=== PATIENT | female | born 1995 | race Caucasian/White ===

== ENCOUNTER 2025-01-28 15:42 | Emergency (ER) | payer OTHER, SELFPAY ==
[2025-01-28 15:42] VITALS: BP 119/79; PULSE 77; RESP 18; TEMP 36.8; O2SAT 99; BMI 24.5
--- NOTE | 2025-01-28 16:12 | RAD_ITS ---
PROCEDURE: ABDOMEN SINGLE VIEW (PORTABLE) 01/28/2025 REASON FOR EXAM: POSS FB INGESTION (TOOTH) TECHNIQUE: Procedure Code: RADABD_P Modality: DX Procedure: ABDOMEN SINGLE VIEW (PORTABLE) COMPARISON: None. FINDINGS: Bowel gas: Unremarkable bowel gas pattern. Calcifications: No abnormal calcifications. Bones: No acute bony abnormalities. Soft tissues: Intrauterine device is in place. RAD/Abdomen Single View (Portable) IMPRESSION: No acute abdominal findings. No abnormal radiopaque foreign bodies seen. Reading Location: [id number]
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
--- NOTE | 2025-01-28 16:15 | RAD_ITS ---
PROCEDURE: CHEST 1 VIEW (PORTABLE) 01/28/2025 REASON FOR EXAM: POSS FB INGESTION (TOOTH) TECHNIQUE: Frontal view of the chest. COMPARISON: None FINDINGS: Hardware: None Heart: Cardiac and mediastinal contours are stable. Lungs: The lungs are clear. Bones: The bones are unremarkable. No radiopaque foreign body is noted in the digestive tract or airway. RAD/Chest 1 View (Portable) IMPRESSION: No acute cardiopulmonary abnormality. Reading Location: [facility]
--- OUTSIDE RECORDS SUMMARY | 2025-01-28 16:19 | XMS RPT_ITS | CCD ---
Author Organization [facility] Care Team Providers Care Dispatcher Clerk Name Role Phone LISA, ORQUIDEA R Unavailable Unavailable LISA, ORQUIDEA R Unavailable Unavailable LISA, ORQUIDEA R Unavailable Unavailable LISA, ORQUIDEA R Unavailable Unavailable IRENE, ORESTES L Unavailable Unavailable IRENE, ORESTES L Unavailable Unavailable IRENE, ORESTES L Unavailable Unavailable Unavailable Primary Care Provider UnavailWilber Pedro MD Primary Care Provider Unavailable Primary Care Provider UnavailWilber Pedro MD Primary Care Provider WILBER WOODWARD Attending Unavailable FATEDEBBIEY D Primary Care Unavailable WILBER WOODWARD Attending Unavailable WILBER WOODWARD Primary Care Unavailable WILBER WOODWARD Primary Care Unavailable ROLY MCKEON Attending Unavailable WILBER WOODWARD Primary Care Unavailable CHRIS IBRAHIM Attending Unavailable ROLY MCKEON Attending Unavailable DEBBIE WOODWARDY [place] Primary Care Unavailable Tere Gutierrez MD Unavailable TERE GUTIERREZ Attending Unavailable Juliano Harris Primary Care Unavailable Dread Hoover Attending Unavailable Allergies Allergy Classification Reported Allergen(s) Allergy Type Date of Onset Reaction(s) Facility (7 sources) Acetaminophen / oxyCODONE; Translations: [OXYCODONE-ACETAM INOPHEN] Drug Allergy 0 [facility] (20 sources) Amoxicillin; Translations: [AMOXICILLIN] Drug Allergy 6 Hives, Anaphylaxis [facility] (20 sources) Doxycycline; Translations: [DOXYCYCLINE] Drug Allergy 9 Hives [facility] (20 sources) oxyCODONE; Translations: [OXYCODONE] Drug Allergy 1 Dizziness, Hives, Loss of consciousness, Nausea And Vomiting, Other [facility] (16 sources) Amitriptyline; Translations: [AMITRIPTYLINE] Drug Allergy 2 [employer] Work Phone: (16 sources) topiramate; Translations: [TOPIRAMATE] Drug Allergy 2 Pain [facility] (1 source) Amoxicillin Drug Allergy 5 [facility] (1 source) Doxycycline Drug Allergy 5 [facility] (1 source) topiramate Drug Allergy 5 [facility] Medications Current Medications Medication Drug Class(es) Dates Sig (Normalized) Sig (Original) atogepant (Qulipta) 60 mg tablet (10 sources) Start: 03-10-2023 End: 03-09-2024 take 1 tablet by mouth once daily atogepant (Qulipta) 60 mg tablet Take 60 mg by mouth 1 (one) time each day. 90 tablet 3 03/10/2023 03/09/2024 Active Start: 01-31-2022 End: 01-31-2023 take 1 tablet by mouth once daily atogepant (Qulipta) 60 mg tablet Indications: Chronic migraine without aura, with intractable migraine, so stated, with status migrainosus Take 60 mg by mouth 1 (one) time each day. 30 tablet 11 01/31/2022 01/31/2023 Active Start: 01-31-2022 End: 01-31-2023 take 1 tablet by mouth once daily atogepant (Qulipta) 60 mg tablet Take 60 mg by mouth 1 (one) time each day. 0 01/31/2022 01/31/2023 Active drospirenone, contraceptive, (Slynd) 4 mg (28) tablet (2 sources) Start: 08-09-2021 End: 09-04-2021 take 1 tablet by mouth once daily drospirenone, contraceptive, (Slynd) 4 mg (28) tablet Take 1 tablet by mouth 1 (one) time each day. 0 08/09/2021 09/04/2021 Discontinued (Other) Start: 08-09-2021 take 1 tablet by devon th once daily drospirenone, contraceptive, (Slynd) 4 mg (28) tablet Take 1 tablet by mouth 1 (one) time each day. 0 08/09/2021 Active levonorgestrel 0.139935 mg/hr intrauterine system (14 sources) Progestin, Progestin-containing Intrauterine Device Start: 09-04-2021 levonorgestreL (Kyleena) 17.5 mcg/24 hrs (5 yrs) 19.5 mg IUD 1 each by intrauterine route 1 (one) time for 1 dose. Lot [id number] Ex 06/2023 [facility] 36151-941-15 1 Intra Uterine Device 0 09/04/2021 Active Start: 09-04-2021 levonorgestreL 17.5 mcg/24 hrs (5 yrs) 19.5 mg intrauterine device IUD 19.5 mg by intrauterine route. 09/04/2021 Active miSOPROStol 0.2 mg oral tablet (1 source) Prostaglandin E1 Analog Start: 08-21-2021 End: 08-21-2021 miSOPROStoL (Cytotec) 200 mcg tablet Indications: Encounter for female control Take 1 tablet (200 mcg total) by mouth 1 (one) time if needed (IUD insertion) for up to 1 dose. Take 8-12 hrs prior to IUD insertion 1 tablet 0 08/21/2021 08/21/2021 Active Norethindrone (4 sources) Start: 09-23-2020 End: 09-04-2021 Katy 0.35 mg tablet Start: 09-23-2020 Katy 0.35 mg tablet Qulipta 60 mg tablet (1 source) Start: 08-03-2023 Qulipta 60 mg tablet rimegepant 75 mg disintegrating oral tablet (13 sources) Start: 01-14-2023 apply 1 tablet topically once daily rimegepant (Nurtec) 75 mg dispersible tablet Indications: Chronic migraine without aura, with intractable migraine, so stated, with status migrainosus Dissolve 1 tablet (75 mg total) on top of the tongue 1 (one) time each day if needed for migraine (for breakthrough). 8 tablet 11 01/14/2023 Active Start: 10-16-2021 End: 11-26-2022 apply 1 tablet topically once daily rimegepant (Nurtec) 75 mg dispersible tablet Indications: Chronic migraine without aura, with intractable migraine, so stated, with status migrainosus Dissolve 1 tablet (75 mg total) on top of the tongue 1 (one) time each day if needed for migraine (for breakthrough). 8 tablet 11 11/26/2022 Active rimegepant (Nurt ec ODT) 75 mg tablet,disintegrating Take by mouth. 0 Active rizatriptan 10 mg disintegrating oral tablet (9 sources) Serotonin-1b and Serotonin-1d Receptor Agonist Start: 09-20-2021 rizatriptan (MAXALT-RETAIL SERVICE TECHNICIAN) 10 mg disintegrating tablet DISSOLVE 1 TABLET ON THE TONGUE AT ONSET OF HEADACHE. MAY REPEAT 1 BY MOUTH EVERY 2 HOUR NEEDED. MAX 3 PER DAY 0 09/20/2021 Active Start: 02-26-2021 End: 12-03-2023 take 1 tablet by mouth once rizatriptan RETAIL SERVICE TECHNICIAN (Maxalt-ML T) 10 mg disintegrating tablet Indications: Chronic migraine without aura with status migrainosus, not intractable Take 1 tablet (10 mg total) by mouth 1 (one) time if needed for migraine (Tkane one tablet at the onset of migraine headache. May repeat one in 2 hours. Maximal dose: 2/day/week.). May repeat in 2 hours if unresolved. Do not exceed 30 mg in 24 hours. 9 tablet 6 02/26/2021 12/03/2023 Discontinued Start: 10-30-2020 End: 02-26-2021 rizatriptan RETAIL SERVICE TECHNICIAN (Maxalt-RETAIL SERVICE TECHNICIAN) 10 mg disintegrating tablet DISSOLVE 1 TABLET ON THE TONGUE AT ONSET OF HEADACHE. MAY REPEAT 1 BY MOUTH EVERY 2 HOUR NEEDED. MAX 3 PER DAY 0 10/30/2020 02/26/2021 Discontinued (Reorder) dl-alpha tocopheryl acetate 100 unt oral capsule (3 sources) End: 08-21-2021 vitamin E, dl,tocopheryl mehrdad t, (vitamin E, dl, acetate,) 45 mg (100 unit) capsule Take 100 Units by mouth. 0 08/21/2021 Discontinued Completed/Discontinued Medications Medication Drug Class(es) Dates Sig (Normalized) Sig (Original) atogepant (Qulipta) 30 mg tablet (2 sources) End: 12-03-2023 take 1 tablet by mouth once daily atogepant (Qulipta) 30 mg tablet Take 30 mg by mouth 1 (one) time each day. 0 12/03/2023 Discontinued take 1 tablet by mouth once tangela y atogepant (Qulipta) 30 mg tablet Take 30 mg by mouth 1 (one) time each day. 0 Active dextromethorphan hydrobromide 15 mg / guaiFENesin 400 mg / pseudoephedrine hydrochloride 60 mg oral tablet (1 source) alpha-Adrenergic Agonist, Uncompetitive Z-rpkhkn-T-aspartate Receptor Antagonist, Sigma-1 Agonist Start: 06-14-2023 End: 12-03-2023 Capmist DM 60-15-400 mg tablet escitalopram 5 mg oral tablet (7 sources) Serotonin Reuptake Inhibitor Start: 03-11-2023 End: 12-03-2023 escitalopram (Lexapro) 5 mg tablet Start: 11-26-2022 End: 02-24-2023 take 1 tablet by mouth once daily escitalopram (Lexapro) 5 mg tablet Indications: Anxiety Take 1 tablet (5 mg total) by mouth 1 (one) time each day. 30 each 2 11/26/2022 02/24/2023 Active gadoterate meglumine (Dotarem) 0.5 mmol/mL contrast injection 12 mL (1 source) Start: 01-23-2021 End: 01-23-2021 gadoterate meglumine (Dotarem) 0.5 mmol/mL contrast injection 12 mL gyhalgbe-ktda-KZ-calciu m-mins 27 mg iron-400 mcg tablet (13 sources) End: 12-03-2023 take 1 tablet by mouth once daily luxlinrg-hzpq-HF-calcium -mins 27 mg iron-400 mcg tablet Take 1 tablet by mouth 1 (one) time each day. 0 12/03/2023 Discontinued take 1 tablet by devon th once daily mkomdrzj-oyba-PP-calcium-mins 27 mg iron -400 mcg tablet Take 1 tablet by mouth 1 (one) time each day. Active take 1 tablet by devon th once daily ofnnuapy-ouek-TU-calcium-mins 27 mg iron -400 mcg tablet Take 1 tablet by mouth 1 (one) time each day. 0 Active 24 hr propranolol hydrochloride 120 mg extended release oral capsule (9 sources) beta-Adrenergic Brissa Start: 11-23-2020 End: 12-03-2023 take 1 capsule by mouth once daily propranolol LA (Inderal LA) 120 mg 24 hr capsule Indications: Chronic migraine without aura with status migrainosus, not intractable Take 1 capsule (120 mg total) by mouth 1 (one) time each day. 90 capsule 2 02/26/2021 12/03/2023 Discontinued SUMAtriptan 100 mg oral tablet (4 sources) Serotonin-1b and Serotonin-1d Receptor Agonist Start: 11-16-2019 End: 12-03-2023 SUMAtriptan (Imitrex) 100 mg tablet as needed 0 11/16/2019 12/03/2023 Discontinued Problems Active Problems Problem Classification Problem Date Documented Date Episodic/Chronic Anxiety disorders (3 sources) Anxiety; Translations: [Anxiety disorder, unspecified] Onset: 11-26-2022 11-26-2022 Chronic Contraceptive and procreative management (2 sources) Contraception status; Translations: [Encounter for initial prescription of contraceptives, unspecified] Onset: 12-03-2023 Episodic Esophageal disorders (17 sources) Gastroesophageal reflux disease; Translations: [Gastro-esophageal reflux disease without esophagitis] Onset: 09-17-2018 11-23-2020 Chronic Headache; including migraine (20 sources) New daily persistent headache; Translations: [New daily persistent headache (NDPH)] Onset: 05-07-2015 Resolved: 08-21-2021 11-23-2020 Chronic Immunizations and screening for infectious disease (2 sources) Patient encounter status; Translations: [Encounter for screening for infections with a predominantly sexual mode of transmission] Episodic Other female genital disorders (1 source) History of dysplasia of cervix; Translations: [Personal history of cervical dysplasia] Onset: 12-03-2023 12-03-2023 Episodic Other screening for suspected conditions (not mental disorders or infectious disease) (5 sources) Magnetic resonance imaging of brain abnormal; Translations: [Other abnormal findings on diagnostic imaging of central nervous system] Onset: 12-03-2023 Episodic Residual codes; unclassified (4 sources) Insomnia; Translations: [Other insomnia] Onset: 11-16-2019 08-16-2021 Chronic Residual codes; unclassified (1 source) High risk sexual behavior; Translations: [High risk heterosexual behavior] Episodic Residual codes; unclassified (1 source) History of loop electrosurgical excision procedure; Translations: [Other specified postprocedural states] Episodic Unclassified (1 source) Pain in right knee / M25.561(ICD-10) Onset: 12-01-2017 Unclassified (1 source) Encounter for other preprocedural examination / Z01.818(ICD-10) Onset: 04-13-2017 Unclassified (1 source) Sprain of unspecified ligament of right ankle, subsequent encounter / S93.401D(ICD-10) Onset: 04-13-2017 Unclassified (2 sources) Med Refill; Translations: [Med Refill] Onset: 03-10-2023 Past or Other Problems Problem Classification Problem Date Documented Da te Episodic/Chronic Mood disorders (6 sources) Mood disorders Onset: 11-26-2022 11-26-2022 Residual codes; unclassified (3 sources) Family history of breast cancer; Translations: [Family history of malignant neoplasm of breast] Onset: 08-28-2021 09-04-2021 Episodic Residual codes; unclassified (11 sources) Insomnia; Translations: [Insomnia, unspecified] Onset: 11-16-2019 10-16-2021 Episodic Results Test Name Value Interpretation Reference Range Facility PAP SMEARon 12-03-2023 Cytopathology procedure, preparation of smear, genital source LAB AP CASE REPORT: Pap Test Case: [id number] Authorizing Provider: Tere Gutierrez MD Collected: 12/03/2023 01:41 PM Ordering Location: [facility] Received: 12/03/2023 02:28 PM Gynecology First Screen: Marlena Caraballo Specimen: Pap Test, Cervical Swab [facility] AP MOTOR HOME ELECTRICAL FOREMAN SPECIMEN ADEQUACY: Satisfactory for evaluation, endocervical/transform ation zone component present LAB AP [employer] HOME ELECTRICAL FOREMAN GENERAL CATEGORIZATION: Negative for intraepithelial lesion and malignancy LAB AP [employer] HOME ELECTRICAL FOREMAN INTERPRETATION: Negative for intraepithelial lesion and malignancy AP [employer]OR HOME ELECTRICAL FOREMAN OTHER FINDINGS: Fungal organisms morphologically consistent with Grazyna spp LAB AP [employer]OR HOME ELECTRICAL FOREMAN ADDITIONAL INFORMATION: This liquid based ThinPrep(R) pap test was screened with the use of an image guided system. Performed by Leydi Garcia Electrical Worker (ASCP) Performing Laboratory: [facility]; [facility], [facility] This slide has not been reviewed internally, see scanned external report. The Pap smear is a screening test designed to aid in the detection of premalignant and malignant conditions of the uterine cervix. It is not a diagnostic procedure and should not be used as the sole means of detecting cervical cancer. Both false-positive and false-negative reports do occur. The Pap test is a screening test which carries inherent false negative and false positive rates. These test results should be correlated with the patient?s clinical findings and history. Normal [facility] Comment on above: Performed By: #### L AB4 #### [facility] [address] IUD Insertionon 09-04-2021 SAMARA Ely 09/04/2021 8:31 AM IUD Insertion Date/Time: 09/04/2021 8:31 AM Performed by: SAMARA Ely Authorized by: SAMARA Ely Consent: Consent obtained: Written Consent given by: Patient Procedure risks and benefits discussed: yes Patient questions answered: yes Patient agrees, verbalizes understanding, and wants to proceed: yes Educational handouts given: yes Instructions and paperwork completed: yes Procedure: Pelvic exam performed: yes Negative GC/chlamydia test: yes Cervix cleaned and prepped: yes Speculum placed in vagina: yes Tenaculum applied to cervix: yes Uterus sounded: yes Uterus sound depth (cm): 6 IUD inserted with no complications: yes IUD type: Kyleena. Strings trimmed: yes Post-procedure: Patient tolerated procedure well: yes Patient will follow up after next period: yes [facility] MR Brain WO and W contrast I Von 01-23-2021 1. Stable exam. No acute intracranial findings. 2. Asymmetric enlarged perivascular spaces throughout the left cerebral hemisphere, unchanged from prior. [facility] AND WITHOUT CONTRAST: CLINICAL INDICATION: Abnormality on prior brain MRI with cystic structures, follow-up evaluation COMPARISON: MRI of the brain 11/29/2019 TECHNIQUE: Sagittal T1, axial T2, FLAIR, T1 and diffusion-weighted with ADC map and coronal FLAIR and diffusion-weighted images was performed through the brain without contrast. Gadolinium was also administered with T1 weighted post infusion images obtained in sagittal, axial and coronal planes. FINDINGS: Again noted are numerous cystic structures scattered throughout the left cerebral hemisphere in a pattern compatible with enlarged perivascular spaces. These are unchanged from prior and follows CSF on all sequences. No new or enhancing lesions are appreciated. No significant edema or mass effect. No abnormal FLAIR signal surrounding these lesions. No intracranial hemorrhage is identified. No restricted diffusion is identified to suggest acute ischemia. There are no extra-axial collections. Sellar and parasellar structures are unremarkable. The ventricles and sulci are unremarkable. Extracranial structures are unremarkable. [facility] Travis Finnegan MD - 01/23/2021 MRI OF THE BRAIN WITH AND WITHOUT CONTRAST: CLINICAL INDICATION: Abnormality on prior brain MRI with cystic structures, follow-up evaluation COMPARISON: MRI of the brain 11/29/2019 TECHNIQUE: Sagittal T1, axial T2, FLAIR, T1 and diffusion-weighted with ADC map and coronal FLAIR and diffusion-weighted images was performed through the brain without contrast. Gadolinium was also administered with T1 weighted post infusion images obtained in sagittal, axial and coronal planes. FINDINGS: Again noted are numerous cystic structures scattered throughout the left cerebral hemisphere in a pattern compatible with enlarged perivascular spaces. These are unchanged from prior and follows CSF on all sequences. No new or enhancing lesions are appreciated. No significant edema or mass effect. No abnormal FLAIR signal surrounding these lesions. No intracranial hemorrhage is identified. No restricted diffusion is identified to suggest acute ischemia. There are no extra-axial collections. Sellar and parasellar structures are unremarkable. The ventricles and sulci are unremarkable. Extracranial structures are unremarkable. IMPRESSION: 1. Stable exam. No acute intracranial findings. 2. Asymmetric enlarged perivascular spaces throughout the left cerebral hemisphere, unchanged from prior. [facility] Radiology Study observation (narrative) [facility] MR Brain WO and W contrast I VOrdered By: Travis Finnegan on 01-23-2021 [facility] Work Phone: BASIC METABOLIC PANELon 02-2 Creatinine [Mass/Vol] 0.7 mg/dL Normal 0.5-1.1 [facility] Comment on above: Order Comment: Speci men to be collected later? N SOURCE? CLEAN CATCH URINE URINE SPECIMEN REFRIGERATED PRIOR TO TESTING Performed By: #### E KAILA KOCH #### [facility] [address] [place] [address] GFR (MDRD) > 60 Normal [facility] Comment on above: Order Comment: Speci men to be collected later? N SOURCE? CLEAN CATCH URINE URINE SPECIMEN REFRIGERATED PRIOR TO TESTING Result Comment: TO ESTIMATE GFR FOR AMERICANS MULTIPLY THE RESULT BY 1.21. GFR LESS THAN 60 mL/min/1.73m2: SUGGESTIVE OF CHRONIC KIDNEY DISEASE. GFR LESS THAN 15 mL/min/1.73m2: SUGGESTIVE OF END STAGE RENAL DISEASE. Performed By: #### E KAILA KOCH #### [address] [address] Glucose [Mass/Vol] 107 mg/dL High 74-106 [facility] Comment on above: Order Comment: Speci men to be collected later? N SOURCE? CLEAN CATCH URINE URINE SPECIMEN REFRIGERATED PRIOR TO TESTING Result Comment: NOTE IF THIS IS A FASTING SPECIMEN THE FOLLOWING RANGES APPLY: NORMAL 70 TO 99 mg/dL PREDIABETIC 100 TO 125 mg/dL DIABETIC >= 126 mg/dL Performed By: #### E KAILA KOCH #### [address] [address] OSMOLALITY(CALCULAT ED) 272 mOSM/kg Low 275-305 [facility] Comment on above: Order Comment: Speci men to be collected later? N SOURCE? CLEAN CATCH URINE URINE SPECIMEN REFRIGERATED PRIOR TO TESTING Performed By: #### E KAILA KOCH #### [address] [address] Urea nitrogen [Mass/Vol] 11 mg/dL Normal 9-23 [facility] Comment on above: Order Comment: Speci men to be collected later? N SOURCE? CLEAN CATCH URINE URINE SPECIMEN REFRIGERATED PRIOR TO TESTING Performed By: #### E KAILA KOCH #### [address] [place] [address] Urea nitrogen/Creatinine [Mass ratio] 15.7 mg/mg Normal 6-20 [facility] Comment on above: Order Comment: Speci men to be collected later? N SOURCE? CLEAN CATCH URINE URINE SPECIMEN REFRIGERATED PRIOR TO TESTING Performed By: #### KAILA LEE #### [facility] [address] [place] [address] Anion gap [Moles/Vol] 14.8 mmol/L Normal 8-22 [facility] Comment on above: Order Comment: Speci men to be collected later? N SOURCE? CLEAN CATCH URINE URINE SPECIMEN REFRIGERATED PRIOR TO TESTING Performed By: #### KAILA LEE #### [address] [address] Calcium [Mass/Vol] 9.5 mg/dL Normal 8.7-10.4 [facility] Comment on above: Order Comment: Speci men to be collected later? N SOURCE? CLEAN CATCH URINE URINE SPECIMEN REFRIGERATED PRIOR TO TESTING Performed By: #### KAILA LEE #### [facility] [address] [place] [id number] CO2 [Moles/Vol] 22 mmol/L Normal 20-31 [facility] Comment on above: Order Comment: Speci men to be collected later? N SOURCE? CLEAN CATCH URINE URINE SPECIMEN REFRIGERATED PRIOR TO TESTING Performed By: #### KAILA LEE #### [address] [address] Chloride [Moles/Vol] 104 mmol/L Normal 99-109 [facility] Comment on above: Order Comment: Speci men to be collected later? N SOURCE? CLEAN CATCH URINE URINE SPECIMEN REFRIGERATED PRIOR TO TESTING Performed By: #### KAILA LEE #### [address] [address] Potassium [Moles/Vol] 4.0 mmol/L Normal 3.6-5.1 [facility] Comment on above: Order Comment: Speci men to be collected later? N SOURCE? CLEAN CATCH URINE URINE SPECIMEN REFRIGERATED PRIOR TO TESTING Performed By: #### KAILA LEE #### [address] [place] [address] Sodium [Moles/Vol] 136 mmol/L Normal 132-146 [facility] Comment on above: Order Comment: Speci men to be collected later? N SOURCE? CLEAN CATCH URINE URINE SPECIMEN REFRIGERATED PRIOR TO TESTING Performed By: #### E KAILA KOCH #### [address] [address] CULTURE, URINEon 04-27-2020 CULTURE, URINE -- --- CULTURE, URINE: 50,000 COL/mL [Viridans Streptococcus] NO SENSITIVITY 20,000 COL/mL MIXED SKIN BASHIR, NO FURTHER IDENTIFICATION, NO SENSITIVITY --- Viridans Streptococcus: Viridans Streptococcus - ORGANISM ID [id number] Isolated Normal [facility] Comment on above: Order Comment: Speci men to be collected later? N Performed By: #### A PTT, PT #### [address] [address] ER CBC WITH DIFFERENTIALon 0 04-27-2020 Basophils/100 WBC (Bld) 1.0 % Normal 0-1 [facility] Comment on above: Order Comment: Speci men to be collected later? N SPEC INST. 1 COMMENT: 1 Performed By: #### E RCD #### [address] [address] Eosinophils/100 WBC (Bld) 1.0 % Normal 1-4 [facility] Comment on above: Order Comment: Speci men to be collected later? N SPEC INST. 1 COMMENT: 1 Performed By: #### E RCD #### [address] [address] Lymphocytes/100 WBC (Bld) 4.0 % Low 24-44 [facility] Comment on above: Order Comment: Speci men to be collected later? N SPEC INST. 1 COMMENT: 1 Result Comment: A ma nual differential was performed due to numeric and/or cell suspect messages generated by the analyzer. Both analyzer and manual results are reported due to federal regulations. In this scenario, the MANUAL differential is the most accurate. Performed By: #### E RCD #### [facility] [address] [place] [id number] Monocytes/100 WBC (Bld) 3.0 % Normal 1-7 [facility] Comment on above: Order Comment: Speci men to be collected later? N SPEC INST. 1 COMMENT: 1 Performed By: #### E RCD #### [facility] [address] [place] [address] PLATELET ESTIMATE ADEQ Normal [facility] Comment on above: Order Comment: Speci men to be collected later? N SPEC INST. 1 COMMENT: 1 Performed By: #### E RCD #### [facility] [address] [place] [address] SEGMENTED NEUTROPHIL 90.9 % High 36-66 [facility] Comment on above: Order Comment: Speci men to be collected later? N SPEC INST. 1 COMMENT: 1 Performed By: #### E RCD #### [facility] [address] [place] [address] ABSOLUTE BASOPHIL COUNT 0 10 3/uL Low 0.02-0.05 [facility] Comment on above: Order Comment: Speci men to be collected later? N SPEC INST. 1 COMMENT: 1 Performed By: #### E RCD #### [facility] [address] [place] [address] ABSOLUTE EOSINOPHIL COUNT 0 10 3/uL Low 0.05-0.25 [facility] Comment on above: Order Comment: Speci men to be collected later? N SPEC INST. 1 COMMENT: 1 Performed By: #### E RCD #### [facility] [address] [place] [address] ABSOLUTE LYMPHOCYTE COUNT 0.3 10 3/uL Low 1.5-3.0 [facility] Comment on above: Order Comment: Speci men to be collected later? N SPEC INST. 1 COMMENT: 1 Performed By: #### E RCD #### [facility] [address] [place] [address]228 ABSOLUTE MONOCYTE COUNT 0.4 10 3/uL Normal 0.1-1.0 [facility] Comment on above: Order Comment: Speci men to be collected later? N SPEC INST. 1 COMMENT: 1 Performed By: #### E RCD #### [facility] [address] [place] [address]101 ABSOLUTE NEUTROPHIL COUNT 11.9 10 3/uL High 1.8-7.0 [facility] Comment on above: Order Comment: Speci men to be collected later? N SPEC INST. 1 COMMENT: 1 Performed By: #### E RCD #### [address] [address] Basophils/100 WBC (Bld) 0.2 % Normal 0-1 [facility] Comment on above: Order Comment: Speci men to be collected later? N SPEC INST. 1 COMMENT: 1 Performed By: #### E RCD #### [facility] [address] [place] [address]679 Eosinophils/100 WBC (Bld) 0.1 % Low 1-4 [facility] Comment on above: Order Comment: Speci men to be collected later? N SPEC INST. 1 COMMENT: 1 Performed By: #### E RCD #### [facility] [address] [place] [address]703 Hematocrit (Bld) [Volume fraction] 40.9 % Normal 36.0-46.0 [facility] Comment on above: Order Comment: Speci men to be collected later? N SPEC INST. 1 COMMENT: 1 Performed By: #### E RCD #### [facility] [address] [place] [address]12 Hemoglobin (Bld) [Mass/Vol] 13.5 g/dL Normal 12.0-16.0 [facility] Comment on above: Order Comment: Speci men to be collected later? N SPEC INST. 1 COMMENT: 1 Performed By: #### E RCD #### [facility] [address] [place] [address] Lymphocytes/100 WBC (Bld) 2.3 % Low 24-44 [facility] Comment on above: Order Comment: Speci men to be collected later? N SPEC INST. 1 COMMENT: 1 Performed By: #### E RCD #### [facility] [address] [place] [address]6950 MCV (RBC) [Entitic vol] 88.4 fL Normal 80.0-100.0 [facility] Comment on above: Order Comment: Speci men to be collected later? N SPEC INST. 1 COMMENT: 1 Performed By: #### E RCD #### [facility] [address] [place] [address]117 MEAN CELL HEMOGLOBIN 29.2 PG Normal 26.0-34.0 [facility] Comment on above: Order Comment: Speci men to be collected later? N SPEC INST. 1 COMMENT: 1 Performed By: #### E RCD #### [facility] [address] [place] [address]558 MEAN CORPUSCULAR HGB CONC 33.1 GM/DL Normal 31.0-37.0 [facility] Comment on above: Order Comment: Speci men to be collected later? N SPEC INST. 1 COMMENT: 1 Performed By: #### E RCD #### [facility] [address] [place] [address]84 MEAN PLATELET VOLUME 8.8 UM3 Normal 7.4-10.4 [facility] Comment on above: Order Comment: Speci men to be collected later? N SPEC INST. 1 COMMENT: 1 Performed By: #### E RCD #### [facility] [address] [place] [address]114 Monocytes/100 WBC (Bld) 3.2 % Normal 1-7 [facility] Comment on above: Order Comment: Speci men to be collected later? N SPEC INST. 1 COMMENT: 1 Performed By: #### E RCD #### [facility] [address] [place] [address] 11343 Neutrophils/100 WBC (Bld) 94.2 % High 36-71 [facility] Comment on above: Order Comment: Speci men to be collected later? N SPEC INST. 1 COMMENT: 1 Performed By: #### E RCD #### [facility] [address] [place] [address]405 PLATELET 249 TH/MM3 Normal 140-440 [facility] Comment on above: Order Comment: Speci men to be collected later? N SPEC INST. 1 COMMENT: 1 Performed By: #### E RCD #### [facility] [address] [place] [address]156 RED BLOOD COUNT 4.62 MIL/MM3 Normal 4.00-5.20 [facility] Comment on above: Order Comment: Speci men to be collected later? N SPEC INST. 1 COMMENT: 1 Performed By: #### E RCD #### [address] [address] RED CELL DISTRIBUTION WID 13.4 UNITS Normal 11.5-14.5 [facility] Comment on above: Order Comment: Speci men to be collected later? N SPEC INST. 1 COMMENT: 1 Performed By: #### E RCD #### [facility] [address] [place] [address]996 WHITE BLOOD COUNT 12.6 TH/MM3 High 4.5-11.0 [facility] Comment on above: Order Comment: Speci men to be collected later? N SPEC INST. 1 COMMENT: 1 Result Comment: MIKE ZALDIVAR DIFFERENTIAL TO FOLLOW Performed By: #### E RCD #### [address] [address] ER NOTEon 04-27-2020 ER NOTE [facility] EMERGENCY RECORD TRIAGE (ThuApr 27, 2020 07:32 TSD2) TRIAGE NOTES: PT STATES NAUSEA AND VOMITTING ONSET LAST NIGHT. STATES POSITIVE TEST TWO DAYS AGO. DENIES KNOWING WHEN FIRST MISSED PERIOD WAS. DENIES CRAMPS OR VAGINAL BLEEDING. PT ALERT AND ORIENTED AND SPEAKING IN COMPLETE SENTENCES. (ThuApr 27, 2020 07:32 TSD2) PATIENT: NAME: Shant Escobar, AGE: 24, GENDER: female, : Sun 1995, TIME OF GREET: ThuApr 27, 2020 07:29, PREFERRED LANGUAGE: Scottish, SSN: [id number], Zip Code: [address], KG WEIGHT: 58.97, PHONE: [phone], , , Family MD: PHYSICIAN, NO, MRSA/VRE - VERIFY: No, P/A DRUG SCREEN RQ?: NO, ADVANCED DIRECTIVES: No. (ThuApr 27, 2020 07:32 TSD2) ADMISSION: URGENCY: CARLIN LEVEL 3, DEPT: Emergency, BED: POD1 08. (ThuApr 27, 2020 07:32 TSD2) VITAL SIGNS: BP: 96/61, Pulse: 125, Resp: 20, Temp: 97.8, Pain: 0, O2 sat: 96 on (RA), Time: 04/27/2020 07:30. (ThuApr 27, 2020 07:30 TSD2) COMPLAINT: Pt Sts Vomiting. (ThuApr 27, 2020 07:32 TSD2) CODE STATUS: FULLCODE. (ThuApr 27, 2020 07:32 TSD2) ASSESSMENT: Triage assessment performed. (ThuApr 27, 2020 07:32 TSD2) PAIN: No complaint of pain. (ThuApr 27, 2020 07:32 TSD2) ABUSE SCREENING: No domestic violence. (ThuApr 27, 2020 07:32 TSD2) BH SCREENIN. In the last 30 days have you wished you were or wished you could go to sleep and not wake up? No, 2. In the last 30 days have you had any actual thoughts of killing yourself? No, 6. Have you ever done anything, started to do anything, or prepared to do anything to end your life? No, Patient screens as no Identifiable suicide risk., Do you have thoughts about harming others? No. (ThuApr 27, 2020 07:32 TSD2) PROVIDERS: TRIAGE NURSE: Eufemia Proctor RN. (ThuApr 27, 2020 07:32 TSD2) KNOWN ALLERGIES amoxicillin [From: Amoxicillin] (Unconfirmed) doxycycline [From: Doxycycline] (Unconfirmed) oxyCODONE [From: OxyCODONE Hydrochloride] (Unconfirmed) CURRENT MEDICATIONS (ThuApr 27, 2020 07:32 TSD2) None HPI NAUSEA/VOMITING/DIARRH EA (ThuApr 27, 2020 08:10 MDBK) CHIEF COMPLAINT: Patient presents for evaluation of nausea, presents for evaluation of vomiting. HISTORIAN: History provided by patient. LOCATION FEMALE: Symptoms are generalized, no radiation. QUALITY: Pain is dull in nature, described as cramping. SEVERITY: Maximum severity of symptoms moderate, Currently symptoms are moderate. Name: Shant Escobar : 1995 F24 MedRec: [id number] AcctNum: [id number] Page 1 of 9 [facility] EMERGENCY RECORD TIME COURSE: Gradual onset of symptoms, days priror to arrival. ASSOCIATED WITH FEMALE: No associated hematemesis, No associated melena, Associated with nausea, Associated with vomiting, diffuse abdominal pain. EXACERBATED BY: Patient's condition exacerbated by food. RELIEVED BY: Patient's condition relieved by nothing. ROS (ThuApr 27, 2020 08:10 MDBK) GI: Historian reports nausea, Historian reports vomiting. NOTES: All systems reviewed, negative except as described above. PAST MEDICAL HISTORY MEDICAL HISTORY: No past medical history, Have you received chemotherapy medication in the past two weeks? No. (ThuApr 27, 2020 07:32 TSD2) SURGICAL HISTORY FEMALE: Patient has no surgical history. (ThuApr 27, 2020 07:32 TSD2) PSYCHIATRIC HISTORY: No previous psychiatric history. (ThuApr 27, 2020 07:32 TSD2) SOCIAL HISTORY: Patient denies alcohol use, Patient denies drug use, Patient has no smoking history, Patient has no vaping history, Social history includes no recent travel outside the [place] in the last 30 days. (ThuApr 27, 2020 07:32 TSD2) FAMILY HISTORY: Family istory is not significant. (ThuApr 27, 2020 07:32 TSD2) NOTES: Nursing records reviewed, Agree with nursing records. (ThuApr 27, 2020 07:32 TSD2) Nursing records reviewed, Medication list reviewed. (ThuApr 27, 2020 08:10 MDBK) PHYSICAL EXAM (ThuApr 27, 2020 08:10 MDBK) CONSTITUTIONAL: Vital signs reviewed, Patient appears non toxic. HEAD: Head exam included findings of head atraumatic, normocephalic. EYES: Pupils equally round and reactive to light, Extraocular muscles intact, Conjunctiva normal. ENT: Ear exam normal, Nose exam normal, Pharynx exam normal, Mouth exam normal. NECK: Neck exam included findings of normal range of motion, Trachea midline, no meningeal signs, no tenderness, no abrasions, no contusions. RESPIRATORY CHEST: Respiratory and chest exam normal, Breath sounds clear, Chest exam included findings of chest movement symmetrical. CARDIOVASCULAR: Cardiovascular exam included findings of heart rate regular rate and rhythm, Heart sounds normal. ABDOMEN FEMALE: Abdominal exam included findings of abdomen tender, diffusely, mild intensity, no distension, no peritoneal Name: Shant Escobar Alessio : 1995 F24 MedRec: (more content not included)... Normal [facility] ER URINALYSISon 04-27-2020 REFLEX CUR PEDIATRIC <24 MON UCC Normal [facility] Comment on above: Order Comment: Speci men to be collected later? N SOURCE? CLEAN CATCH URINE URINE SPECIMEN REFRIGERATED PRIOR TO TESTING Performed By: #### E KAILA KOCH #### [facility] [address] [place] [address] ER URINALYSIS DIPSTICKon BILIRUBIN UA Negative Normal NEGATIVE [facility] Comment on above: Order Comment: Speci men to be collected later? N SOURCE? CLEAN CATCH URINE URINE SPECIMEN REFRIGERATED PRIOR TO TESTING Performed By: #### KAILA LEE #### [facility] [address] [place] [address] Clarity (U) CLOUDY [facility] Comment on above: Order Comment: Speci men to be collected later? N SOURCE? CLEAN CATCH URINE URINE SPECIMEN REFRIGERATED PRIOR TO TESTING Performed By: #### KAILA LEE #### [facility] [address] [place] [address] Color (U) YELLOW [facility] Comment on above: Order Comment: Speci men to be collected later? N SOURCE? CLEAN CATCH URINE URINE SPECIMEN REFRIGERATED PRIOR TO TESTING Result Comment: LESS THAN 5 ML URINE SUBMITTED QNS FOR MICROSCOPIC EVALUATION Performed By: #### E KAILA KOCH #### [facility] [address] [place] [address] Glucose Ql (U) Negative Normal NEGATIVE [facility] Comment on above: Order Comment: Speci men to be collected later? N SOURCE? CLEAN CATCH URINE URINE SPECIMEN REFRIGERATED PRIOR TO TESTING Performed By: #### E ZEE ERU #### [facility] [address] [place] [address] Hemoglobin Ql (U) Negative Normal NEGATIVE [facility] Comment on above: Order Comment: Speci men to be collected later? N SOURCE? CLEAN CATCH URINE URINE SPECIMEN REFRIGERATED PRIOR TO TESTING Performed By: #### E KAILA KOCH #### [address] [address] KETONE >=80 Normal NEGATIVE [facility] Comment on above: Order Comment: Speci men to be collected later? N SOURCE? CLEAN CATCH URINE URINE SPECIMEN REFRIGERATED PRIOR TO TESTING Performed By: #### E KAILA KOCH #### [address] [address] LEUKOCYTES Negative Normal NEGATIVE [facility] Comment on above: Order Comment: Speci men to be collected later? N SOURCE? CLEAN CATCH URINE URINE SPECIMEN REFRIGERATED PRIOR TO TESTING Performed By: #### KAILA LEE #### [address] [address] Nitrite Ql (U) Negative Normal NEGATIVE [facility] Comment on above: Order Comment: Speci men to be collected later? N SOURCE? CLEAN CATCH URINE URINE SPECIMEN REFRIGERATED PRIOR TO TESTING Performed By: #### KAILA LEE #### [address] [address] PH URINALYSIS 5.5 Normal 4.5-8.0 [facility] Comment on above: Order Comment: Speci men to be collected later? N SOURCE? CLEAN CATCH URINE URINE SPECIMEN REFRIGERATED PRIOR TO TESTING Performed By: #### KAILA LEE #### [facility] [address] [place] [address]005 Protein Ql (U) 30 MG/DL Abnormal NEGATIVE [facility] Comment on above: Order Comment: Speci men to be collected later? N SOURCE? CLEAN CATCH URINE URINE SPECIMEN REFRIGERATED PRIOR TO TESTING Performed By: #### KAILA LEE #### [facility] [address] [place] [address] Specific gravity (U) [Rel density] >=1.030 Normal [facility] Comment on above: Order Comment: Speci men to be collected later? N SOURCE? CLEAN CATCH URINE URINE SPECIMEN REFRIGERATED PRIOR TO TESTING Performed By: #### E KAILA KOCH #### [facility] [address] [place] [address] UROBILINOGEN C 0.2 EU/DL Normal 0.2-1.0 [facility] Comment on above: Order Comment: Speci men to be collected later? N SOURCE? CLEAN CATCH URINE URINE SPECIMEN REFRIGERATED PRIOR TO TESTING Performed By: #### E KAILA KOCH #### [facility] [address] [place] [address] HCGon 04-27-[place] [address].1 m[IU]/mL High < 10.0 [facility] Comment on above: Order Comment: Speci men to be collected later? N SOURCE? CLEAN CATCH URINE URINE SPECIMEN REFRIGERATED PRIOR TO TESTING Result Comment: SUGGESTED REFERENCE RANGE FOR QUANTITATIVE HCG ON FEMALES. 0.2-1 WEEKS = 5 TO 50 mIU/mL 1-2 WEEKS = 50 TO 500 mIU/mL 2-3 WEEKS = 100 TO 5000 mIU/mL 3-4 WEEKS = 500 TO 10,000 mIU/mL 4-5 WEEKS = 1,000 TO 50,000 mIU/mL 5-6 WEEKS = 10,000 TO 100,000 mIU/mL 6-8 WEEKS = 15,000 TO 200,000 mIU/mL 8-12 WEEKS = 10,000 TO 100,000 mIU/mL Performed By: #### KAILA LEE #### [address] [address] LIPASEon 04-27-2020 Lipase [Catalytic activity/Vol] 29.0 U/L Normal 12-53 [facility] Comment on above: Order Comment: Speci men to be collected later? N SOURCE? CLEAN CATCH URINE URINE SPECIMEN REFRIGERATED PRIOR TO TESTING Performed By: #### E KAILA KOCH #### [address] [address] LIVER HEPATIC FUNCTIONon SGOT/SGPT RATIO Normal 0-2 [facility] Comment on above: Order Comment: Speci men to be collected later? N SOURCE? CLEAN CATCH URINE URINE SPECIMEN REFRIGERATED PRIOR TO TESTING Result Comment: UNAB LE TO CALCULATE DUE TO LOW ALT Performed By: #### E KAILA KOCH #### [address] [address] Albumin [Mass/Vol] 5.0 g/dL High 3.2-4.8 [facility] Comment on above: Order Comment: Speci men to be collected later? N SOURCE? CLEAN CATCH URINE URINE SPECIMEN REFRIGERATED PRIOR TO TESTING Performed By: #### E KAILA KOCH #### [address] [address] Albumin/Globulin [Mass ratio] 1.7 {ratio} Normal 0.9-2.0 [facility] Comment on above: Order Comment: Speci men to be collected later? N SOURCE? CLEAN CATCH URINE URINE SPECIMEN REFRIGERATED PRIOR TO TESTING Performed By: #### E KAILA KOCH #### [address] [address] ALP [Catalytic activity/Vol] 56 U/L Normal 40-121 [facility] Comment on above: Order Comment: Speci men to be collected later? N SOURCE? CLEAN CATCH URINE URINE SPECIMEN REFRIGERATED PRIOR TO TESTING Performed By: #### E KAILA KOCH #### [address] [address] ALT/SGPT < 8 Low 9-48 [facility] Comment on above: Order Comment: Speci men to be collected later? N SOURCE? CLEAN CATCH URINE URINE SPECIMEN REFRIGERATED PRIOR TO TESTING Performed By: #### E KAILA KOCH #### [address] [address] AST [Catalytic activity/Vol] 20 U/L Normal < 37 [facility] Comment on above: Order Comment: Speci men to be collected later? N SOURCE? CLEAN CATCH URINE URINE SPECIMEN REFRIGERATED PRIOR TO TESTING Performed By: #### E KAILA KOCH #### [address] [address] Bilirubin [Mass/Vol] 0.9 mg/dL Normal 0.2-1.2 [facility] Comment on above: Order Comment: Speci men to be collected later? N SOURCE? CLEAN CATCH URINE URINE SPECIMEN REFRIGERATED PRIOR TO TESTING Performed By: #### E ZEE, ERU #### [facility] [address] [place] [address] Bilirubin.direct [Mass/Vol] 0.2 mg/dL Normal < 0.3 [facility] Comment on above: Order Comment: Speci men to be collected later? N SOURCE? CLEAN CATCH URINE URINE SPECIMEN REFRIGERATED PRIOR TO TESTING Performed By: #### E ZEE ERU #### [facility] [address] [place] [address] GLOBULIN 3.0 G/dL Normal [facility] Comment on above: Order Comment: Speci men to be collected later? N SOURCE? CLEAN CATCH URINE URINE SPECIMEN REFRIGERATED PRIOR TO TESTING Performed By: #### E ZEE ERU #### [address] [address] Protein [Mass/Vol] 8.0 g/dL Normal 5.7-8.2 [facility] Comment on above: Order Comment: Speci men to be collected later? N SOURCE? CLEAN CATCH URINE URINE SPECIMEN REFRIGERATED PRIOR TO TESTING Performed By: #### E ZEE ERU #### [address] [address] RH TYPEon 04-27-2020 PREV.RECORD? NO [facility] Comment on above: Order Comment: Speci men to be collected later? N Performed By: #### A PTT, PT #### [facility] [address] [place] [address] RH TYPE Positive Normal [facility] Comment on above: Order Comment: Speci men to be collected later? N Performed By: #### A PTT, PT #### [facility] [address] [place] [address] TIME COMPLETED 0818 [facility] Comment on above: Order Comment: Speci men to be collected later? N Performed By: #### A PTT, PT #### [facility] [address] [place] [address] US Early Complete 7680 1on 04-27-2020 US Early Complete [id number] EXAM: US Early Complete 07706 [facility] SHANT ESCOBAR VISIT: [id number] : 1995 SEX: F DEPT NO: [id number] PATIENT LOCATION: ER1 EXAM: US Early Complete [id number] 04/27/2020 08:49:00 SIGNS AND SYMPTOMS: Comment: PERTINENT SYMPTOMS: PERTINENT SYMPTOMS: , pelvic pain Requesting Provider: EVELYN LOPEZ - PELVIC ULTRASOUND: CLINICAL INDICATION: , pelvic pain. COMPARISON: None available in PACS. TECHNIQUE: Real-time sonographic evaluation of the pelvis was performed by a patrol inspector transabdominally with sales representative livestock grayscale and color Doppler images saved in sagittal and transverse planes. Static images were reviewed. LMP: Uncertain. FINDINGS: UTERUS AND GESTATIONAL SAC The gravid maternal uterus is unremarkable. There is a normal appearing single intrauterine gestational sac with surrounding decidual reaction located near the fundus. A pole and amnion are identified. The yolk sac is normal in size and appearance. The average crown-rump length is 19.35 mm, which corresponds to an estimated gestational age of 8 weeks, 4 days. Cardiac activity is identified with a heart rate of 164 bpm obtained. The estimated due date is 12/03/2020. No perigestational hemorrhage is identified. The placental location is unable to be reliably determined at this time. OVARIES The ovaries are sonographically unremarkable in appearance. Blood flow is identified in the ovaries on color Doppler imaging. No adnexal collections are identified. FREE FLUID No free fluid is identified in the pelvis. IMPRESSION: 1. Single viable intrauterine is identified with an estimated gestational age of 8 weeks, 4 days and a heart rate of 164 bpm. 2. The estimated due date is 12/03/2020. Performed By: Tammy Ornelas 04/27/2020 08:49:00 Signed By: BARRY LOVE MD 04/27/2020 09:03:00 Normal [facility] ER NOTEon 04-24-2020 ER NOTE [facility] EMERGENCY RECORD TRIAGE (ThuApr 24, 2020 11:26 MLD5) TRIAGE NOTES: Pt arrives ambulatory to triage one c/o low grade fever x5-6 weeks. Pt reports dx with a virus, sts medicating OTC without relief. Pt reports n/v, headache, lightheaded, fatigue, unable to keep down food or fluids. Pt reports negative testing for flu and covid approx. 1-2 weeks ago. Pt reports I'm just not getting better and they just keep telling me it's a virus.. (ThuApr 24, 2020 11:26 MLD5) PATIENT: NAME: Shant Escobar, AGE: 24, GENDER: female, : Sun 1995, TIME OF GREET: ThuApr 24, 2020 11:03, PREFERRED LANGUAGE: Scottish, SSN: [id number], Zip Code: [address], KG WEIGHT: 58.97 (est.), PHONE: [phone], , , Family MD: PHYSICIAN, NO, MRSA/VRE - VERIFY: No, P/A DRUG SCREEN RQ?: NO, ADVANCED DIRECTIVES: No. (ThuApr 24, 2020 11:26 MLD5) ADMISSION: URGENCY: CARLIN LEVEL 5, DEPT: Emergency, BED: WAITING. (ThuApr 24, 2020 11:26 MLD5) VITAL SIGNS: Resp: 16, Temp: 97.0, Pain: 5, Time: 04/24/2020 11:24. (ThuApr 24, 2020 11:24 MLD5) COMPLAINT: Pt Sts Fever Nausea Congestion Loss Of Appetite. (ThuApr 24, 2020 11:26 MLD5) CODE STATUS: FULLCODE. (ThuApr 24, 2020 11:27 MLD5) ASSESSMENT: Triage assessment performed. (ThuApr 24, 2020 11:27 MLD5) PAIN: Patient complains of pain, On a scale 0-10 patient rates pain as 5. (ThuApr 24, 2020 11:27 MLD5) ABUSE SCREENING: No abuse verbalized or identified. (ThuApr 24, 2020 11:27 MLD5) BH SCREENIN. In the last 30 days have you wished you were or wished you could go to sleep and not wake up? No, 2. In the last 30 days have you had any actual thoughts of killing yourself? No, 6. Have you ever done anything, started to do anything, or prepared to do anything to end your life? No, Patient screens as no Identifiable suicide risk., Do you have thoughts about harming others? No. (ThuApr 24, 2020 11:27 MLD5) LMP: Pt has not been or given in the last twelve months. (ThuApr 24, 2020 11:27 MLD5) PROVIDERS: TRIAGE NURSE: Maria Alejandra Reyes RN. (ThuApr 24, 2020 11:26 MLD5) PREVIOUS VISIT ALLERGIES: Amoxicillin, Doxycycline, OxyCODONE Hydrochloride [oxyCODONE]. (ThuApr 24, 2020 11:26 MLD5) Amoxicillin, Doxycycline, OxyCODONE Hydrochloride [oxyCODONE]. (ThuApr 24, 2020 11:27 MLD5) KNOWN ALLERGIES amoxicillin [From: Amoxicillin] (Unconfirmed) doxycycline [From: Doxycycline] (Unconfirmed) oxyCODONE [From: OxyCODONE Hydrochloride] (Unconfirmed) CURRENT MEDICATIONS (ThuApr 24, 2020 11:26 MLD5) Amitriptyline Hydrochloride: Name: Shant Escobar : 1995 F24 MedRec: [id number] AcctNum: [id number] Page 1 of 8 [facility] EMERGENCY RECORD Patient Dose: Unknown. Topiramate: Patient Dose: Unknown. SUMAtriptan Succinate: Patient Dose: Unknown. HPI FLU-LIKE SYNDROME (ThuApr 24, 2020 13:21 ART1) History of Present Illness: PATIENT STATES ONGOING LOSS OF APPETITE, N, V, AND FEELING FATIGUED FOR ABOUT 5 WEEKS NOW. SHE STATES SUBJECTIVE FEVER WELL. CHIEF COMPLAINT: Patient presents for evaluation of body aches, presents for evaluation of fatigue, presents for evaluation of fever. tactile, Measured maximum temperature 101 to 101.9 degrees. HISTORIAN: History provided by patient. LOCATION: Symptoms are generalized. QUALITY: Pain is dull in nature, described as aching. SEVERITY: Maximum severity of symptoms mild, Currently symptoms are mild. TIME COURSE: Sudden onset of symptoms, Date and time of onset was LAST NIGHT. EXACERBATED BY: Patient's condition exacerbated by nothing. RELIEVED BY: Patient's condition relieved by nothing. IMMUNIZATION STATUS: Flu vaccine not up to date. ROS CONSTITUTIONAL: Historian reports fatigue, Historian reports fever. (ThuApr 24, 2020 13:21 ART1) ENT: Historian reports rhinorrhea. (ThuApr 24, 2020 13:28 ART1) GI: Historian reports appetite changes, Historian reports nausea, Historian reports vomiting. (ThuApr 24, 2020 13:21 ART1) NOTES: All systems reviewed, negative except as described above. (ThuApr 24, 2020 13:21 ART1) PAST MEDICAL HISTORY MEDICAL HISTORY: No past medical history, Have you received chemotherapy medication in the past two weeks? No. (ThuApr 24, 2020 11:27 MLD5) SURGICAL HISTORY FEMALE: Patient has no surgical history. (ThuApr 24, 2020 11:27 MLD5) PSYCHIATRIC HISTORY: No previous psychiatric history. (ThuApr 24, 2020 11:27 MLD5) SOCIAL HISTORY: Patient denies alcohol use, Patient denies drug use, Patient has no smoking history, Patient has no vaping history, Social history includes no recent travel outside the [place] in the last 30 days. (ThuApr 24, 2020 11:27 MLD5) FAMILY HISTORY: Family istory is not significant. (ThuApr 24, 2020 11:27 MLD5) NOTES: Nursing records reviewed, Agree with nursing records. (ThuApr 24, 2020 13:21 ART1) N (more content not included)... Normal [facility] URINALYSISon 04-24-2020 BACTERIA 1+ /HPF Normal NONE [facility] Comment on above: Order Comment: Speci men to be collected later? N SOURCE? CLEAN CATCH URINE URINE SPECIMEN REFRIGERATED PRIOR TO TESTING Performed By: #### E KAILA KOCH #### [facility] [address] [place] [address] CAST HYALINE 5-10 Normal NONE [facility] Comment on above: Order Comment: Speci men to be collected later? N SOURCE? CLEAN CATCH URINE URINE SPECIMEN REFRIGERATED PRIOR TO TESTING Performed By: #### KAILA LEE #### [facility] [address] [place] [address] EPITHELIAL MODERATE Abnormal NONE [facility] Comment on above: Order Comment: Speci men to be collected later? N SOURCE? CLEAN CATCH URINE URINE SPECIMEN REFRIGERATED PRIOR TO TESTING Performed By: #### E ZEE ERU #### [facility] [address] [place] [address] URINE RBC 0-2 Normal NONE [facility] Comment on above: Order Comment: Speci men to be collected later? N SOURCE? CLEAN CATCH URINE URINE SPECIMEN REFRIGERATED PRIOR TO TESTING Performed By: #### E KAILA KOCH #### [facility] [address] [place] [address] URINE WBC 5-10 Normal NONE [facility] Comment on above: Order Comment: Speci men to be collected later? N SOURCE? CLEAN CATCH URINE URINE SPECIMEN REFRIGERATED PRIOR TO TESTING Performed By: #### E KAILA KOCH #### [address] [address] BILIRUBIN UA Negative Normal NEGATIVE [facility] Comment on above: Order Comment: Speci men to be collected later? N SOURCE? CLEAN CATCH URINE URINE SPECIMEN REFRIGERATED PRIOR TO TESTING Performed By: #### E KAILA KOCH #### [address] [address] Clarity (U) CLOUDY Normal [facility] Comment on above: Order Comment: Speci men to be collected later? N SOURCE? CLEAN CATCH URINE URINE SPECIMEN REFRIGERATED PRIOR TO TESTING Performed By: #### E ZEE ERU #### [address] [address] Color (U) YELLOW Normal [facility] Comment on above: Order Comment: Speci men to be collected later? N SOURCE? CLEAN CATCH URINE URINE SPECIMEN REFRIGERATED PRIOR TO TESTING Performed By: #### E ZEE ERU #### [facility] [address] [place] [address] Glucose Ql (U) Negative Normal NEGATIVE [facility] Comment on above: Order Comment: Speci men to be collected later? N SOURCE? CLEAN CATCH URINE URINE SPECIMEN REFRIGERATED PRIOR TO TESTING Performed By: #### E ZEE ERU #### [facility] [address] [place] [address] Hemoglobin Ql (U) Negative Normal NEGATIVE [facility] Comment on above: Order Comment: Speci men to be collected later? N SOURCE? CLEAN CATCH URINE URINE SPECIMEN REFRIGERATED PRIOR TO TESTING Performed By: #### E KAILA KOCH #### [facility] [address] [place] [address] KETONE 15 Abnormal NEGATIVE [facility] Comment on above: Order Comment: Speci men to be collected later? N SOURCE? CLEAN CATCH URINE URINE SPECIMEN REFRIGERATED PRIOR TO TESTING Performed By: #### E KAILA KOCH #### [address] [address] LEUKOCYTES MODERATE Abnormal NEGATIVE [facility] Comment on above: Order Comment: Speci men to be collected later? N SOURCE? CLEAN CATCH URINE URINE SPECIMEN REFRIGERATED PRIOR TO TESTING Performed By: #### E KAILA KOCH #### [address] [address] Nitrite Ql (U) Negative Normal NEGATIVE [facility] Comment on above: Order Comment: Speci men to be collected later? N SOURCE? CLEAN CATCH URINE URINE SPECIMEN REFRIGERATED PRIOR TO TESTING Performed By: #### E KAILA KOCH #### [address] [address] PH URINALYSIS 5.5 Normal 4.5-8.0 [facility] Comment on above: Order Comment: Speci men to be collected later? N SOURCE? CLEAN CATCH URINE URINE SPECIMEN REFRIGERATED PRIOR TO TESTING Performed By: #### E KAILA KOCH #### [address] [address] Protein Ql (U) TRACE Abnormal NEGATIVE [facility] Comment on above: Order Comment: Speci men to be collected later? N SOURCE? CLEAN CATCH URINE URINE SPECIMEN REFRIGERATED PRIOR TO TESTING Performed By: #### E KAILA KOCH #### [facility] [address] [place] [address] Specific gravity (U) [Rel density] 1.025 Normal [facility] Comment on above: Order Comment: Speci men to be collected later? N SOURCE? CLEAN CATCH URINE URINE SPECIMEN REFRIGERATED PRIOR TO TESTING Performed By: #### E ZEE ERU #### [address] [address] UROBILINOGEN C 1.0 EU/DL Normal 0.2-1.0 [facility] Comment on above: Order Comment: Speci men to be collected later? N SOURCE? CLEAN CATCH URINE URINE SPECIMEN REFRIGERATED PRIOR TO TESTING Performed By: #### E ZEE, KAILA #### [facility] [address] [place] [address] REFLEX CUR PEDIATRIC <24 MON UCC Normal [facility] Comment on above: Order Comment: Speci men to be collected later? N SOURCE? CLEAN CATCH URINE URINE SPECIMEN REFRIGERATED PRIOR TO TESTING Performed By: #### E ZEE, KAILA #### [facility] [address] [place] [address] INFLUENZA A/B ANTIGENSon INFLUENZA A/B ANTIGENS A NEGATIVE FLU RESULT DOES NOT RULE OUT INFLUENZA VIRAL INFECTION. A NEGATIVE FLU RESULT SHOULD BE CONFIRMED BY PCR. INFLUENZA A NEGATIVE INFLUENZA B NEGATIVE [facility] Comment on above: Order Comment: Speci men to be collected later? N SOURCE? CLEAN CATCH URINE URINE SPECIMEN REFRIGERATED PRIOR TO TESTING Performed By: #### Kanu KOCH, KAILA #### [facility] [address] [place] [address] ER NOTEon 04-10-2020 ER NOTE [facility] EMERGENCY RECORD TRIAGE (ThuApr 10, 2020 17:19 GAP) PATIENT: NAME: Shant Escobar, AGE: 24, GENDER: female, : Sun 1995, TIME OF GREET: ThuApr 10, 2020 17:18, PREFERRED LANGUAGE: Scottish, SSN: [id number], Zip Code: Formerly named [facility], PHONE: [phone], , , Family MD: PHYSICIAN, NO, MRSA/VRE - VERIFY: No, P/A DRUG SCREEN RQ?: NO, ADVANCED DIRECTIVES: No. ADMISSION: URGENCY: Urgent Care, DEPT: Urgent Care - [facility], BED: WAITING. COMPLAINT: Dt Pt Sts Fever Nvd Head Pain Fatigued. PREVIOUS VISIT ALLERGIES: Amoxicillin, Doxycycline, OxyCODONE Hydrochloride [oxyCODONE]. KNOWN ALLERGIES amoxicillin [From: Amoxicillin] doxycycline [From: Doxycycline] oxyCODONE [From: OxyCODONE Hydrochloride] CURRENT MEDICATIONS Amitriptyline Hydrochloride: Patient Dose: Unknown. (ThuApr 10, 2020 17:23 AAB1) Topiramate: Patient Dose: Unknown. (ThuApr 10, 2020 17:23 AAB1) SUMAtriptan Succinate: Patient Dose: Unknown. (ThuApr 10, 2020 17:24 AAB1) HPI FLU-LIKE SYNDROME (ThuApr 10, 2020 17:32 DLW) History of Present Illness: 5 day hx of fever, headache, fatigue and nausea and vomiting. CHIEF COMPLAINT: Patient presents for evaluation of body aches, presents for evaluation of fatigue, presents for evaluation of fever, presents for evaluation of upper respiratory infection. HISTORIAN: History provided by patient. LOCATION: Symptoms are generalized. TIME COURSE: Sudden onset of symptoms, 5, days ago. ASSOCIATED WITH: No associated symptoms, Associated with vomiting. ROS (ThuApr 10, 2020 17:33 DLW) CONSTITUTIONAL: Historian reports fever. GI: Historian reports vomiting. NOTES: All systems reviewed, negative except as described above. PAST MEDICAL HISTORY MEDICAL HISTORY: No past medical history, Have you received chemotherapy medication in the past two weeks? No. (ThuApr 10, 2020 17:24 AAB1) Past medical history is not significant. (ThuApr 10, 2020 17:33 DLW) SURGICAL HISTORY FEMALE: Patient has no surgical history. (ThuApr 10, 2020 17:24 AAB1) Name: Shant Escobar : 1995 F24 MedRec: [id number] AcctNum: [id number] Page 1 of 4 [facility] EMERGENCY RECORD PSYCHIATRIC HISTORY: No previous psychiatric history. (ThuApr 10, 2020 17:24 AAB1) SOCIAL HISTORY: Patient denies alcohol use, Patient denies drug use, Patient has no smoking history, Patient has no vaping history, Social history includes no recent travel outside the [place] in the last 30 days. (ThuApr 10, 2020 17:24 AAB1) FAMILY HISTORY: Family istory is not significant. (ThuApr 10, 2020 17:24 AAB1) NOTES: Nursing records reviewed, Agree with nursing records. (ThuApr 10, 2020 17:24 AAB1) Nursing records reviewed, Agree with nursing records. (ThuApr 10, 2020 17:33 DLW) PHYSICAL EXAM (ThuApr 10, 2020 17:33 DLW) CONSTITUTIONAL: Vital signs reviewed, Patient afebrile, Pulse normal, Respiratory rate, increased, 18, Patient appears non toxic, Patient alert and oriented to person, place and time. ENT: Ear exam normal, Nose exam normal, Pharynx exam normal. NECK: Neck exam normal, no meningeal signs. RESPIRATORY CHEST: Breath sounds clear. CARDIOVASCULAR: Cardiovascular assessment normal. ABDOMEN FEMALE: Abdominal exam included findings of abdomen soft. VITAL SIGNS (ThuApr 10, 2020 17:22 AAB1) VITAL SIGNS: Pulse: 77, Resp: 18, Temp: 97.1, Pain: 6, O2 sat: 98 on (RA). EVENTS ATTENDING: MD Wood Donald L. saw the patient at ThuApr 10, 2020 17:26. (ThuApr 10, 2020 17:26 DLW) TRANSFER: Triage to Urgent Care - [facility]. (ThuApr 10, 2020 17:19 GAP) Urgent Care - [facility] Waiting [facility] - [facility] to Urgent Care [facility] 1. (ThuApr 10, 2020 17:20 AAB1) Removed from Urgent Care - [facility] Urgent Care [facility] 1. (ThuApr 10, 2020 17:47 AAB1) NURSING PROCEDURE: BEDSIDE TESTING (ThuApr 10, 2020 17:45 KB4) PATIENT IDENTIFIER: Patient's identity verified by patient stating name, Patient's identity verified by patient stating date. FLU: FLU A and B negative, automation and control engineer positive, automation and control engineer negative. RAPID ROB SARS AG: Rapid Rob SARS AG Result presumptive negative, Negative results, from patients with symptom onset beyond five days, should be treated as presumptive and confirmation with a molecular assay is recommended. SHELBY SARS AG EUA COMMENT This test has not been FDA cleared or approved; this test has been authorized by FDA under an Emergency Use Authorization (EUA). Authorization for use is approved until the Name: Shant Escobar : 1995 F24 MedRec: [id number] AcctNum: [id number] Page 2 of 4 [facility] EMERGENCY RECORD public health emergency is terminated or the EUA is revoked by the FDA., automation and control engineer positive, automation and control engineer negative. NURSING PROCEDURE: DISCHARGE NOTE (ThuApr 10 (more content not included)... Normal [facility] ER NOTEon 03-21-2020 ER NOTE [facility] EMERGENCY RECORD TRIAGE (ThuMar 21, 2020 17:37 GAP) PATIENT: NAME: Shant Escobar, AGE: 24, GENDER: female, : Sun 1995, TIME OF GREET: ThuMar 21, 2020 17:33, PREFERRED LANGUAGE: Scottish, SSN: [id number], Zip Code: Formerly named [facility], PHONE: [phone], , , Family MD: PHYSICIAN, NO, MRSA/VRE - VERIFY: No, P/A DRUG SCREEN RQ?: NO, ADVANCED DIRECTIVES: No. ADMISSION: URGENCY: Urgent Care, DEPT: Urgent Care - [facility], BED: WAITING. COMPLAINT: Dt Pt Sts Head Pain Dizzy Sinus Pressure. PREVIOUS VISIT ALLERGIES: NKDA. KNOWN ALLERGIES amoxicillin [From: Amoxicillin] doxycycline [From: Doxycycline] NKDA (Unconfirmed) oxyCODONE [From: OxyCODONE Hydrochloride] CURRENT MEDICATIONS (ThuMar 21, 2020 17:54 DMS4) None HPI FLU-LIKE SYNDROME (ThuMar 21, 2020 18:24 DLW) History of Present Illness: 1 day hx of sinus pressure and headache. Work sent her home. CHIEF COMPLAINT: Patient presents for evaluation of fatigue, presents for evaluation of upper respiratory infection. HISTORIAN: History provided by patient. LOCATION: Symptoms are generalized. TIME COURSE: Sudden onset of symptoms, hours prior to arrival, There has been no change in the patient's symptoms over time. ASSOCIATED WITH: Associated with headache. EXACERBATED BY: Patient's condition exacerbated by nothing. RELIEVED BY: Patient's condition relieved by nothing. ROS (ThuMar 21, 2020 18:25 DLW) CONSTITUTIONAL: Negative constitutional review of systems. NEUROLOGIC: Historian reports headache. NOTES: All systems reviewed, negative except as described above. PAST MEDICAL HISTORY MEDICAL HISTORY: No past medical history, Have you received chemotherapy medication in the past two weeks? No. (ThuMar 21, 2020 17:51 DMS4) Past medical history is not significant. (ThuMar 21, 2020 18:25 DLW) SURGICAL HISTORY FEMALE: Patient has no surgical history. (ThuMar 21, 2020 17:51 DMS4) PSYCHIATRIC HISTORY: No previous psychiatric history. (ThuMar 21, 2020 17:51 DMS4) SOCIAL HISTORY: Patient denies alcohol use, Patient denies drug use, Patient has no smoking history, Patient has no vaping Name: Shant Escobar : 1995 F24 MedRec: [id number] AcctNum: [id number] Page 1 of 4 [facility] EMERGENCY RECORD history, Social history includes no recent travel outside the [place] in the last 30 days. (ThuMar 21, 2020 17:51 DMS4) FAMILY HISTORY: Family istory is not significant. (ThuMar 21, 2020 17:51 DMS4) NOTES: Nursing records reviewed, Agree with nursing records. (ThuMar 21, 2020 17:51 DMS4) Nursing records reviewed, Agree with nursing records. (ThuMar 21, 2020 18:25 DLW) PHYSICAL EXAM (ThuMar 21, 2020 18:25 DLW) CONSTITUTIONAL: Vital signs reviewed, Patient afebrile, Pulse normal, Respiratory rate, increased, 18, Patient appears non toxic, pain free. Patient alert and oriented to person, place and time. ENT: Ear exam normal, Nose exam normal, Pharynx exam normal. NECK: Neck exam normal, no meningeal signs. RESPIRATORY CHEST: Respiratory and chest exam normal, Breath sounds clear. CARDIOVASCULAR: Cardiovascular assessment normal. VITAL SIGNS (ThuMar 21, 2020 17:49 LMM9) VITAL SIGNS: Pulse: 71, Resp: 18, Temp: 98.2, Pain: 0, O2 sat: 98 on (ra). EVENTS ATTENDING: MD Wood Donald L. saw the patient at ThuMar 21, 2020 18:18. (ThuMar 21, 2020 18:18 DLW) TRANSFER: Triage to Urgent Care - [facility] Waiting Main - [facility]. (ThuMar 21, 2020 17:37 GAP) Urgent Care - [facility] Waiting [facility] - [facility] to Urgent Care [facility] - Main 2. (ThuMar 21, 2020 17:43 MRS3) Removed from Urgent Care - [facility] Urgent Care [facility] 2. (ThuMar 21, 2020 18:39 AAB1) NURSING PROCEDURE: BEDSIDE TESTING (ThuMar 21, 2020 18:08 LMM9) PATIENT IDENTIFIER: Patient's identity verified by patient stating name, Patient's identity verified by patient stating date. FLU: FLU A and B negative, automation and control engineer positive, automation and control engineer negative. RAPID ROB SARS AG: Rapid Rob SARS AG Result presumptive negative, Negative results, from patients with symptom onset beyond five days, should be treated as presumptive and confirmation with a molecular assay is recommended. SHELBY SARS AG EUA COMMENT This test has not been FDA cleared or approved; this test has been authorized by FDA under an Emergency Use Authorization (EUA). Authorization for use is approved until the public health emergency is terminated or the EUA is revoked by the FDA., automation and control engineer positive, automation and control engineer negative. NURSING PROCEDURE: DISCHARGE NOTE (ThuMar 21, 2020 18:38 AAB1) Name: Shawn Shant K : 1995 F24 MedRec: [id number] AcctNum: [id number] Page 2 of 4 [facility] EMERGENCY RECORD DISCHARGE: Patient discharged to home, ambulating without assistance, driving self, unaccompanied, Summary of Care bill (more content not included)... Normal [facility] CSF OLIG BANDS (IEP CSF)on CSF OLIG BANDS (IEP CSF) NO BANDS Normal LESS THAN 2 [facility] Comment on above: Result Comment: No o ligoclonal bands were identified in this patient's CSF when compared to their corresponding serum sample. Oligoclonal bands are present in the CSF of more than 85% of patients with clinically definite multiple sclerosis (MS). To distinguish between oligoclonal bands in the CSF due to a peripheral gammopathy and oligoclonal bands due to local production in the PUBLIC SPEAKING PROFESSOR, serum and CSF should be tested simultaneously. Oligoclonal bands can however be observed in a variety of other diseases, e.g., subacute sclerosing panencephalitis, inflammatory polyneuropathy, PUBLIC SPEAKING PROFESSOR lupus, and brain tumors and infarctions. The clinical significance of a numerical band count, determined by isoelectric focusing, has not been definitively defined. The data should be interpreted in conjunction with all pertinent clinical and laboratory data for this patient. Test(s) performed at: [facility] Maisha Carballo M.D., Ph.D., [place], Director Of [employer] [address] [place] [id number] #[id number] [facility] Cervical Spine 2-3 vie ws [id number] 12-26-2019 [facility] Cervical Spine 2-3 views [id number] EXAM: [facility] Cervical Spine 2-3 views [id number] [facility] Department of Radiology SHANT ESCOBAR VISIT: [id number] : 1995 SEX: F DEPT NO: [id number] PATIENT LOCATION: ER2 EXAM: [facility] Cervical Spine 2-3 views [id number] 12/26/2019 12:34:00 SIGNS AND SYMPTOMS: PERTINENT SYMPTOMS: PERTINENT SYMPTOMS: pain Requesting Provider: LIAM ESCAMILLA - Comparison: None The bones are normally ossified. The vertebral bodies are maintained in height. The intervertebral disk spaces are preserved. The spine is in normal alignment and the neural canal is of normal diameter. The atlantoaxial articulation appears to be normal and the prevertebral soft tissues are unremarkable. Impression: Normal cervical spine. Performed By: Vikki Robbins 12/26/2019 12:34:00 Signed By: DELFINA MCCLAIN MD 12/26/2019 12:42:00 Normal [facility] ER NOTEon 12-26-2019 ER NOTE [facility] EMERGENCY RECORD TRIAGE (ThuDec 26, 2019 09:34 MLD5) TRIAGE NOTES: Pt arrives ambulatory without difficulty to triage one, pt reports I got hit yesterday at my soccer game, pt c/o constant neck pain since. Pt denies paresthesias or loss of bowel or bladder pain. (ThuDec 26, 2019 09:34 MLD5) PATIENT: NAME: Shant Escobar, AGE: 24, GENDER: female, : Thu1995, TIME OF GREET: ThuDec 26, 2019 09:32, PREFERRED LANGUAGE: Scottish, SSN: [id number], Zip Code: [address], KG WEIGHT: 58.97 (est.), PHONE: [phone], , , Family MD: PHYSICIAN, NO, MRSA/VRE - VERIFY: No, P/A DRUG SCREEN RQ?: NO, ADVANCED DIRECTIVES: No. (ThuDec 26, 2019 09:34 MLD5) ADMISSION: URGENCY: [facility] L[facility] 5, DEPT: Emergency, BED: WAITING. (ThuDec 26, 2019 09:34 MLD5) VITAL SIGNS: Resp: 16, Temp: 97.3, Pain: 5, Time: 12/26/2019 09:33. (ThuDec 26, 2019 09:33 MLD5) COMPLAINT: Pt Sts Neck Pain. (ThuDec 26, 2019 09:34 MLD5) CODE STATUS: FULLCODE. (ThuDec 26, 2019 09:35 MLD5) ASSESSMENT: Triage assessment performed. (ThuDec 26, 2019 09:35 MLD5) PAIN: Patient complains of pain, On a scale 0-10 patient rates pain as 5. (ThuDec 26, 2019 09:35 MLD5) ABUSE SCREENING: No abuse verbalized or identified. (ThuDec 26, 2019 09:35 MLD5) BH SCREENIN. In the last 30 days have you wished you were or wished you could go to sleep and not wake up? No, 2. In the last 30 days have you had any actual thoughts of killing yourself? No, 6. Have you ever done anything, started to do anything, or prepared to do anything to end your life? No, Patient screens as no Identifiable suicide risk., Do you have thoughts about harming others? No. (ThuDec 26, 2019 09:35 MLD5) LMP: Pt has not been or given in the last twelve months. (ThuDec 26, 2019 09:35 MLD5) PROVIDERS: TRIAGE NURSE: Maria Alejandra Reyes RN. (ThuDec 26, 2019 09:34 MLD5) KNOWN ALLERGIES NKDA CURRENT MEDICATIONS (ThuDec 26, 2019 09:34 MLD5) None HPI NECK PAIN (ThuDec 26, 2019 12:26 MJM4) HISTORY OF PRESENT ILLNESS: patient reports neck pain after being hit during soccer game yesterday. pain is midline. described as sore. denies radiation, numbness/tingling, focal weakness. reports taking ibuprofen with minimal relief. CHIEF COMPLAINT: Patient presents for evaluation of neck pain. HISTORIAN: History provided by patient. SEVERITY: Current severity of pain rated as 7/10. Name: Shant Escobar : 1995 F24 MedRec: [id number] AcctNum: [id number] Page 1 of 6 [facility] EMERGENCY RECORD ROS (ThuDec 26, 2019 12:27 MJM4) MUSCULOSKELETAL: Historian reports myalgias, Historian reports neck pain. NOTES: All systems reviewed, negative except as described above. PAST MEDICAL HISTORY MEDICAL HISTORY: No past medical history, Have you received chemotherapy medication in the past two weeks? No. (ThuDec 26, 2019 09:35 MLD5) SURGICAL HISTORY FEMALE: Patient has no surgical history. (ThuDec 26, 2019 09:35 MLD5) PSYCHIATRIC HISTORY: No previous psychiatric history. (ThuDec 26, 2019 09:35 MLD5) SOCIAL HISTORY: Patient denies alcohol use, drug use. Patient has no smoking history, no vaping history. Social history includes no recent travel outside the [place] in the last 30 days. (ThuDec 26, 2019 09:35 MLD5) FAMILY HISTORY: Family istory is not significant. (ThuDec 26, 2019 09:35 MLD5) NOTES: Nursing records reviewed, Agree with nursing records. (ThuDec 26, 2019 12:27 MJM4) PHYSICAL EXAM (ThuDec 26, 2019 12:27 MJM4) CONSTITUTIONAL: Vital Signs Reviewed, Patient afebrile, Pulse normal, Blood pressure normal, Respiratory rate normal, Normal pulse oximetry, Patient appears non toxic, Patient appears, in mild pain distress, 7, Patient alert and oriented to person, place and time, No distracting injujry, Nursing notes reviewed. HEAD: Head exam normal, Head exam included findings of head atraumatic, normocephalic. EYES: Pupils equally round and reactive to light. ENT: Mouth exam normal, mucous membranes moist. NECK: Neck exam normal, Neck exam included findings of normal range of motion, no tenderness. RESPIRATORY CHEST: Respiratory and chest exam normal, Respiratory exam included findings of no respiratory distress, Breath sounds clear. CARDIOVASCULAR: Cardiovascular assessment normal, Cardiovascular exam included findings of heart rate regular rate and rhythm, Heart sounds normal. NEURO: Nicolette coma scale 15, Neuro exam findings include patient oriented to person, place and time, Speech normal, Gait normal, no focal motor deficits, no focal sensory deficits. SKIN: Skin exam included findings of skin warm, dry, and normal in color. VITAL SIGNS VITAL SIGNS: Resp: 16, Temp: 97.3, Pain: 5. (ThuDec 26, 2019 09:33 MLD5) Name: Shant Escobar : 1995 F24 MedRec: [id number] AcctNum: [id number] Tj (more content not included)... Normal [facility] MYELIN BASIC PROTEINon 12-20 MYELIN BASIC PROTEIN <2.0 Normal < 4.1 [facility] Comment on above: Result Comment: MBP Result Interpretation 2.0-4.0 mcg/L Negative 4.1-6.0 mcg/L Weakly Positive >6.0 mcg/L Positive This test was developed and its analytical performance characteristics have been determined by [employer] [facility]. It has not been cleared or approved by FDA. This assay has been validated pursuant to the CLIA regulations and is used for clinical purposes. Test(s) performed at: [facility] Maisha Carballo M.D., Ph.D., [place], Director Of [employer] [address] [place] [id number] CLIA #[id number] IGG SYNTHESIS RATE, PUBLIC SPEAKING PROFESSOR INDE Xon 12-18-2019 Albumin [Mass/Vol] 3.8 g/dL Normal 3.5-5.2 [facility] Comment on above: Result Comment: The IgG Synthesis rate, CSF and IgG index, CSF are two formulae for estimating the amount of IgG produced in the central nervous system. Evidence of increased synthesis of IgG provides support for the diagnosis of multiple sclerosis. Test(s) performed at: [facility] Maisha Carballo M.D., Ph.D., [place], Director Of [employer] [address] [place] [id number] CLIA #[id number] ALBUMIN CSF 26.8 mg/dL Normal 8.0-42.0 [facility] PUBLIC SPEAKING PROFESSOR IgG SYNTHESIS RATE -6.8 mg/24 h Low < 3.3 [facility] IgG INDEX 0.43 Normal <0.66 [facility] IgG TOTAL CSF 4.7 mg/dL Normal 0.8-7.7 [facility] IgG TOTAL SERUM 1570 mg/dL Normal 600-1640 [facility] CSF CELL PROFILEon 0 CSF AMOUNT 7.5 ML Normal [facility] Comment on above: Performed By: #### C SFPROT, CSFGLU, CSFCELLPROF #### [facility] [address] [place] [address] CSF APPEARANCE CLEAR Normal [facility] Comment on above: Performed By: #### C SFPROT, CSFGLU, CSFCELLPROF #### [facility] [address] [place] [address] CSF COLOR COLORLESS Normal [facility] Comment on above: Performed By: #### C SFPROT, CSFGLU, CSFCELLPROF #### [address] [address] CSF LYMPHOCYTES 1 Normal 0-1 [facility] Comment on above: Performed By: #### C SFPROT, CSFGLU, CSFCELLPROF #### [facility] [address] [place] [address] CSF RBC 15 /uL High 0-0 [facility] Comment on above: Performed By: #### C SFPROT, CSFGLU, CSFCELLPROF #### [facility] [address] [place] [address] CSF XANTHOCHROMIA NONE SEEN Normal [facility] Comment on above: Performed By: #### C SFPROT, CSFGLU, CSFCELLPROF #### [facility] [address] [place] [address] 66787 WBC (Bld) [#/Vol] 0.001 10*3/uL Normal 0-5 [facility] Comment on above: Performed By: #### C SFPROT, CSFGLU, CSFCELLPROF #### [facility] [address] [place] [address] CSF GLUCOSEon 12-13-2019 CSF GLUCOSE 47.5 mg/dL Normal 40-70 [facility] Comment on above: Performed By: #### C SFPROT, CSFGLU, CSFCELLPROF #### [facility] [address] [place] [address] CSF PROTEINon 12-13-2019 CSF PROTEIN 43 mg/dL Normal 15-45 [facility] Comment on above: Performed By: #### C SFPROT, CSFGLU, CSFCELLPROF #### [facility] [address] [place] [address] PARTIAL THROMBOPLASTIN TIon 12-13-2019 PARTIAL THROMBOPLASTIN TI 26.6 SEC Normal 22.0-32.5 [facility] Comment on above: Result Comment: REFE RENCE RANGE FOR PATIENTS ON HEPARIN ANTICOAGULANT IS 39.7-58.7 SECONDS. Performed By: #### A PTT, PT #### [facility] [address] [place] [address]492 PLATELETon 12-13-2019 PLATELET 245 TH/MM3 Normal 140-440 [facility] Comment on above: Performed By: #### E KAILA KOCH #### [facility] [address] [place] [address]647 HCG PROFILEon 11-30 INTERNAL CONTROL URINE ACCEPTABLE Normal [facility] Comment on above: Performed By: #### KAILA LEE #### [facility] [address] [place] [address] 880[address] PREG HCG Negative Normal [facility] Comment on above: Result Comment: RESU LTS ARE REPORTED AT 25 MIU/ML. Performed By: #### Kanu KOCH ERU #### [address] [address] PROTHROMBIN TIMEon 0 INR Coag (PPP) [Relative time] 1.0 {INR} Normal - [facility] Comment on above: Result Comment: 2.0- 3.0 for Warfarin anticoagulation. (levels up to 4.0 may be required in some clinical situations) Performed By: #### A PTT, PT #### [facility] [address] [place] [address] PT Coag (PPP) [Time] 10.9 s Normal 9.0-11.5 [facility] Comment on above: Result Comment: N EW REFERENCE RANGE FOR NO ANTICOAGULANT THERAPY . Performed By: #### A PTT, PT #### [facility] [address] [place] [address] 93685 XRAY Lumbar Puncture DX with Fluoro [id number] 12-13-2019 XRAY Lumbar Puncture DX with Fluoro 43387 EXAM: XRAY Lumbar Puncture DX with Fluoro [id number] [facility] Department of Radiology SHANT ESCOBAR VISIT: [id number] : 1995 SEX: F DEPT NO: [id number] PATIENT LOCATION: RAD EXAM: XRAY Lumbar Puncture DX with Fluoro [id number] 12/13/2019 14:33:00 SIGNS AND SYMPTOMS: ABNORMAL FINDINGS ON DX IMAGING OF SKULL PERTINENT SYMPTOMS: MAGNETIC RESONANCE IMAGING OF BRAIN ABNORMAL Requesting Provider: NIMCO DOAN - The skin was prepared in a sterile fashion and local anesthesia was obtained. A 20-gauge spinal needle was advanced into the subarachnoid space without difficulty under fluoroscopic guidance. Approximately 6-cc of clear fluid were drained without difficulty. The needle was withdrawn and the patient was returned to the emergency room in good condition. Impression: Successful lumbar puncture Fluoro Time: 0.7 minutes Dose Area Product: 176 Performed By: Priyanka Robb 12/13/2019 14:33:00 Signed By: DELFINA MCCLAIN MD 12/13/2019 14:51:00 Normal [facility] MRI Brain W/O 99136-gy 11-28 MRI Brain W/O 70450- EXAM: MRI Brain W/O 30656- [facility]iology SHANT ESCOBAR VISIT: [id number] : 1995 SEX: F DEPT NO: [id number] PATIENT LOCATION: RAD EXAM: MRI Brain W/O 65438- 11/29/2019 12:54:00 SIGNS AND SYMPTOMS: PERTINENT SYMPTOMS: NEW DAILY PERSISTENT HEADACHE (NDPH) Requesting Provider: NIMCO DOAN - Indications: Persistent headaches. COMPARISON: None available in PACS. IMAGING SEQUENCES: Sagittal T1-weighted images. Axial T1 and T2-weighted images. Axial and coronal inversion recovery images. Axial and coronal diffusion weighted images. FINDINGS: Magnetic resonance imaging was performed of the brain. There are numerous oval-shaped lesions identified within the white matter of the left hemisphere up to 10 mm greatest length. The lesions appear cystic, with signal intensity similar to CSF. No adjacent mass effect nor midline shift is seen. No definite involvement is identified of the posterior fossa nor the right cerebral hemisphere. No adjacent edema is observed, likely representing a chronic process. The findings could represent chronically dilated perivascular spaces. Infectious disease (such as cysticercosis), demyelinating disease (such as multiple sclerosis) and metabolic diseases tend to be bilateral in distribution. The ventricular system demonstrates normal size, shape and symmetry. There are no diffusion-weighted abnormalities present to. A 7 mm retention cyst is seen of the left maxillary sinus. The remaining paranasal sinuses appear clear. IMPRESSION: Numerous cystic changes throughout the left cerebral hemisphere, without adjacent edema or mass effect, likely a chronic process. Findings may represent chronically dilated perivascular spaces. Other etiologies such as demyelinating disease, infectious disease or metabolic disease would seem less likely. Performed By: Barry Clifton 11/29/2019 12:54:00 Signed By: CECILY RODRÍGUEZ MD 11/29/2019 21:40:00 Normal [facility] Comment on above: Order Comment: Speci men to be collected later? N SOURCE? CLEAN CATCH URINE URINE SPECIMEN REFRIGERATED PRIOR TO TESTING CBC WITH DIFFERENTIALon 10-31 ABSOLUTE BASOPHIL COUNT 0 10 3/uL Low 0.02-0.05 [facility] Comment on above: Performed By: #### HERVE CERVANTES #### [facility] [address] [place] [address] ABSOLUTE EOSINOPHIL COUNT 0.1 10 3/uL Normal 0.05-0.25 [facility] Comment on above: Performed By: #### HERVE CERVANTES #### [facility] [address] [place] [address] ABSOLUTE LYMPHOCYTE COUNT 1.6 10 3/uL Normal 1.5-3.0 [facility] Comment on above: Performed By: #### HERVE CERVANTES #### [facility] [address] [place] [address] ABSOLUTE MONOCYTE COUNT 0.4 10 3/uL Normal 0.1-1.0 [facility] Comment on above: Performed By: #### HERVE CERVANTES #### [facility] [address] [place] [address] ABSOLUTE NEUTROPHIL COUNT 1.4 10 3/uL Low 1.8-7.0 [facility] Comment on above: Performed By: #### HERVE CERVANTES #### [facility] [address] [place] [address] Basophils/100 WBC (Bld) 1.2 % High 0-1 [facility] Comment on above: Performed By: #### HERVE CERVANTES #### [facility] [address] [place] [address] Eosinophils/100 WBC (Bld) 1.7 % Normal 1-4 [facility] Comment on above: Performed By: #### HERVE CERVANTES #### [facility] [address] [place] [address] 16038 Hematocrit (Bld) [Volume fraction] 36.2 % Normal 36.0-46.0 [facility] Comment on above: Performed By: #### HERVE CERVANTES #### [address] [address] Hemoglobin (Bld) [Mass/Vol] 12.0 g/dL Normal 12.0-16.0 [facility] Comment on above: Performed By: #### HERVE CERVANTES #### [facility] [address] [place] [address] Lymphocytes/100 WBC (Bld) 44.8 % High 24-44 [facility] Comment on above: Performed By: #### HERVE CERVANTES #### [address] [address] MCV (RBC) [Entitic vol] 88.2 fL Normal 80.0-100.0 [facility] Comment on above: Performed By: #### HERVE CERVANTES #### [facility] [address] [place] [address]24 MEAN CELL HEMOGLOBIN 29.2 PG Normal 26.0-34.0 [facility] Comment on above: Performed By: #### HERVE CERVANTES #### [facility] [address] [place] [address] 88679 MEAN CORPUSCULAR HGB CONC 33.0 GM/DL Normal 31.0-37.0 [facility] Comment on above: Performed By: #### HERVE CERVANTES #### [facility] [address] [place] [address] MEAN PLATELET VOLUME 9.2 UM3 Normal 7.4-10.4 [facility] Comment on above: Performed By: #### HERVE CERVANTES #### [address] [address] Monocytes/100 WBC (Bld) 11.4 % High 1-7 [facility] Comment on above: Performed By: #### HERVE CERVANTES #### [address] [address] Neutrophils/100 WBC (Bld) 40.9 % Normal 36-71 [facility] Comment on above: Performed By: #### HERVE CERVANTES #### [address] [address] PLATELET 205 TH/MM3 Normal 140-440 [facility] Comment on above: Performed By: #### HERVE CERVANTES #### [address] [address] RED BLOOD COUNT 4.10 MIL/MM3 Normal 4.00-5.20 [facility] Comment on above: Performed By: #### HERVE CERVANTES #### [address] [address] RED CELL DISTRIBUTION WID 13.8 UNITS Normal 11.5-14.5 [facility] Comment on above: Performed By: #### HERVE CERVANTES #### [address] [address] WHITE BLOOD COUNT 3.5 TH/MM3 Low 4.5-11.0 [facility] Comment on above: Performed By: #### HERVE CERVANTES #### [address] [address] SEDIMENTATION RATE WESTERon 11-16-2019 SEDIMENTATION RATE MASON 12 MM/HR Normal 1-19 [facility] Comment on above: Result Comment: NEW METHOD AND REFERENCE RANGES Performed By: #### HERVE CERVANTES #### [address] [address] MRI KNEE RIGHT WITHOUT IV CO NTRASTon 12-01-2017 MRI KNEE RIGHT WITHOUT IV CONTRAST EXAMINATION:MRI OF THE RIGHT KNEE WITHOUT CONTRAST, 12/01/2017 8:57 amTECHNIQUE:Multiplana r multisequence MRI of the right knee was performed without theadministration of intravenous contrast.COMPARISON:No ne.HISTORY:Pain in right knee:Tech Notes: Pt states question of meniscal tear medial, pt c/o pain medialaspect right knee x two weeks. 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 There is no significant jointeffusion. There is mild extra-articular subcutaneous edema involving theanteromedial knee. No popliteal cyst or abnormal fluid collection isidentified.BONE MARROW: There is mild marrow edema involving the posterolateral tibialplateau.IMPRESSI ON:Intact medial meniscus.Intact cruciate ligament.Mild edema adjacent to the medial patellofemoral retinaculum suspicious forsprain.Mild bony contusion of the posterolateral tibia. Normal [facility] CBC WITH DIFFERENTIALon 04-02 ABSOLUTE NEUT 3.1 10 3/uL Normal 2.4-6.6 [facility] Comment on above: Performed By: #### 4 [id number] ####[facility] [address] [phone] Basophils Auto #/vol (Bld) 0.1 10 3/uL Normal 0.0-0.1 [facility] Comment on above: Performed By: #### 4 [id number] ####[facility] [address] [phone] Basophils/100 WBC Auto (Bld) 0.9 % Normal [facility] Comment on above: Performed By: #### 4 [id number] ####[facility] [address] [phone] Eosinophils Auto #/vol (Bld) 0.1 10 3/uL Normal 0.1-0.3 [facility] Comment on above: Performed By: #### 4 [id number] ####[address] [phone] Eosinophils/100 WBC Auto (Bld) 1.0 % Normal [facility] Comment on above: Performed By: #### 4 [id number] ####[address] [phone] Erythrocyte distribution width Auto Ratio (RBC) 13.4 % Normal 11.5-14.5 [facility] Comment on above: Performed By: #### 4 [id number] ####[address] [phone] Hematocrit Auto Volume Fraction (Bld) 39.1 % Normal 33.6-46.8 [facility] Comment on above: Performed By: #### 4 [id number] ####[address] [phone] Hemoglobin mass conc (Bld) 12.7 g/dL Normal 11.7-15.8 [facility] Comment on above: Performed By: #### 4 [id number] ####[address] [phone] Lymphocytes Auto #/vol (Bld) 2.2 10 3/uL Normal 1.2-3.3 [facility] Comment on above: Performed By: #### 4 [id number] ####[address] [phone] Lymphocytes/100 WBC Auto (Bld) 38.9 % Normal [facility] Comment on above: Performed By: #### 4 [id number] ####[address] [phone] MCH Auto Entitic mass (RBC) 28.1 pg Normal 27.5-32.3 [facility] Comment on above: Performed By: #### 4 [id number] ####[address] [phone] MCHC Auto mass conc (RBC) 32.5 g/dL Normal 30.7-35.5 [facility] Comment on above: Performed By: #### 4 [id number] ####[place], [place] [phone] MCV Auto Entitic volume (RBC) 86.5 fL Normal 80.2-99.0 [facility] Comment on above: Performed By: #### 4 [id number] ####[place], [place] [phone] Monocytes Auto #/vol (Bld) 0.3 10 3/uL Normal 0.2-0.6 [facility] Comment on above: Performed By: #### 4 [id number] ####[place], [place] [phone] Monocytes/100 WBC Auto (Bld) 5.9 % Normal [facility] Comment on above: Performed By: #### 4 [id number] ####[place], [place] [phone] Neutrophils/100 WBC Auto (Bld) 53.3 % Normal [facility] Comment on above: Performed By: #### 4 [id number] ####[place], [place] [phone] Platelets Auto #/vol (Bld) 278.0 x10 3/uL Normal 150.0-400.0 [facility] Comment on above: Performed By: #### 4 [id number] ####[place] [phone] RBC Auto #/vol (Bld) 4.52 x10 6/uL Normal 3.60-5.20 [facility] Comment on above: Performed By: #### 4 [id number] ####[place] [phone] WBC Auto #/vol (Bld) 5.7 x10 3/uL Normal 4.3-10.3 [facility] Comment on above: Performed By: #### 4 [id number] ####[address] [phone] CHEM 804-13-2017 Calcium mass conc 9.4 mg/dL Normal 8.4-10.4 [facility] Comment on above: Performed By: #### 4 [id number] ####[address] [phone] Glucose mass conc 85 mg/dL Normal 65-100 [facility] Comment on above: Performed By: #### 4 [id number] ####[address] [phone] Urea nitrogen mass conc 9 mg/dL Normal 8-20 [facility] Comment on above: Performed By: #### 4 [id number] ####[facility] [address] [phone] CO2 molar conc 25 mmol/L Normal 22-30 [facility] Comment on above: Performed By: #### 4 [id number] ####Leia Shoopi [address] [phone] Creatinine mass conc 0.74 mg/dL Normal 0.52-1.04 [facility] Comment on above: Performed By: #### 4 [id number] ####[facility] [address] [phone] Chloride molar conc 105 mmol/L Normal 96-109 [facility] Comment on above: Performed By: #### 4 [id number] ####[address] [phone] Potassium molar conc 4.2 mmol/L Normal 3.6-5.1 [facility] Comment on above: Performed By: #### 4 [id number] ####[address] [phone] Sodium molar conc 141 mmol/L Normal 135-147 [facility] Comment on above: Performed By: #### 4 [id number] ####Leia Shoopi [address] [phone] GFRon 04-13-2017 GFR/1.73 sq M.predicted MDRD vol rate/area mL/min/{1.73_m2} Normal [facility] Comment on above: Result Comment: To e stimate the GFR for Americans, multiply the resultprovided by 1.21.Population mean GFR = 116 ml/min/1.73 sq.m. for ages 18-29 yrsFive stages of CKD and GFR for each stage:Stage 1 GFR >=90Stage 2 GFR 60-89Stage 3 GFR 30-59Stage 4 GFR 15-29Stage 5 GFR <15 Performed By: #### G FR1 ####[facility] [address] [phone] Vital Signs Date Time Vital Sign Value Performing Clinician Raymundo george 12-03-2023 12:59-0400 Body mass index (BMI) [Ratio] 19.98 kg/m2 Tere Gutierrez MD Work Phone: [facility] [employer] 12-03-2023 12:59-0400 Body weight 59.6 kg Tere Gutierrez MD Work Phone: [facility] [employer] 12-03-2023 12:59-0400 Diastolic blood pressure 66 mm[Hg] Tere Gutierrez MD Work Phone: [facility] [employer] 12-03-2023 12:59-0400 Systolic blood pressure 103 mm[Hg] Tere Gutierrez MD Work Phone: [facility] [employer] 05-12-2023 14:55-0400 Body mass index (BMI) [Ratio] 20.22 kg/m2 Roly Mckeon MD Work Phone: [email or web address] 05-12-2023 14:55-0400 Body weight 60.33 kg Roly Mckeon MD Work Phone: [email or web address] 11-26-2022 07:41-0400 Body height 172.7 cm Wilber Woodward MD Work Phone: [employer] 11-26-2022 07:41-0400 Body mass index (BMI) [Ratio] 19.46 kg/m2 Wilber Woodward MD Work Phone: [employer] 11-26-2022 07:41-0400 Body temperature 97.5 [degF] Wilber Woodward MD Work Phone: [email or web address] 11-26-2022 07:41-0400 Body weight 58.06 kg Wilber Woodward MD Work Phone: [email or web address] 11-26-2022 07:41-0400 Diastolic blood pressure 68 mm[Hg] Wilber Woodward MD Work Phone: [employer] 11-26-2022 07:41-0400 Heart rate 57 /min Wilber Woodward MD Work Phone: [employer] 11-26-2022 07:41-0400 Respiratory rate 14 /min Wilber Woodward MD Work Phone: [email or web address] 11-26-2022 07:41-0400 SaO2% (BldA) [Mass fraction] 96 % Wilber Woodward MD Work Phone: [facility] [employer] 11-26-2022 07:41-0400 Systolic blood pressure 95 mm[Hg] Wilber Woodward MD Work Phone: [email or web address] 05-22-2022 15:32-0400 Body mass index (BMI) [Ratio] 19.92 kg/m2 Roly Mckeon MD Work Phone: [email or web address] 05-22-2022 15:32-0400 Body weight 59.42 kg Roly Mckeon MD Work Phone: [email or web address] 05-22-2022 15:32-0400 Diastolic blood pressure 56 mm[Hg] Roly Mckeon MD Work Phone: [email or web address] 05-22-2022 15:32-0400 Heart rate 55 /min Roly Mckeon MD Work Phone: [employer] 05-22-2022 15:32-0400 Systolic blood pressure 102 mm[Hg] Roly Mckeon MD Work Phone: [facility] 03-05-2022 07:55-0500 Body height 172.7 cm Beverly Swearingin [employer] TECHNICIAN[employer] Work Phone: [facility] [employer] 03-05-2022 07:55-0500 Body mass index (BMI) [Ratio] 19.22 kg/m2 Beverly Swearingin [employer] TECHNICIAN-S[employer] M[employer]ER Work Phone: [facility] [employer] 03-05-2022 07:55-0500 Body weight 57.34 kg Beverly Swearingin SOL[employer] WASTE TECHNICIAN-SWE[employer] MIXER Work Phone: [facility] [employer] 03-05-2022 07:55-0500 Diastolic blood pressure 62 mm[Hg] Beverly Swearingin [employer]E TECHNICIAN-SWE[employer] MIXER Work Phone: [facility] [employer] 03-05-2022 07:55-0500 Systolic blood pressure 100 mm[Hg] Beverly Swearingin [employer]E TECHNICIAN-SWE[employer] MIXER Work Phone: [facility] [employer] 09-04-2021 08:16-0400 Body height 172.7 cm Claudia Heggestad [employer]E TECHNICIAN-CNM Work Phone: [facility] [employer] 09-04-2021 08:16-0400 Body mass index (BMI) [Ratio] 20.62 kg/m2 Claudia Heggestad [employer]E TECHNICIAN-CNM Work Phone: [facility] [employer] 09-04-2021 08:16-0400 Body weight 61.51 kg Claudia Heggestad [employer] TECHNICIAN-CNM Work Phone: [facility] [employer] 09-04-2021 08:16-0400 Diastolic blood pressure 62 mm[Hg] Claudia Heggestad [employer]E TECHNICIAN-CNM Work Phone: [facility] [employer] 09-04-2021 08:16-0400 Systolic blood pressure 100 mm[Hg] Claudia Oviedo [employer] W[employer]E TECHNICIAN-CNM Work Phone: [facility] 08-21-2021 07:56-0400 Body height 172.7 cm Beverly Swearingin [employer] TECHNICIAN-S[employer] MIXER Work Phone: [facility] 08-21-2021 07:56-0400 Body mass index (BMI) [Ratio] 20.53 kg/m2 Beverly Swearingin [employer] TECHNICIAN-SWE[employer] MIXER Work Phone: [facility] 08-21-2021 07:56-0400 Body temperature 98.29 [degF] Beverly Swearingin [employer]E TECHNICIAN-S[employer] MIXER Work Phone: [facility] 08-21-2021 07:56-0400 Body weight 61.24 kg Beverly Swearingin [employer]E TECHNICIAN-S[employer] MIXER Work Phone: [facility] 08-21-2021 07:56-0400 Diastolic blood pressure 60 mm[Hg] Beverly Swearingin [employer] TECHNICIAN-[employer]WE[employer] MIXER Work Phone: [facility] 08-21-2021 07:56-0400 Systolic blood pressure 106 mm[Hg] Beverly Swearingin [employer]E TECHNICIAN-SWE[employer] MIXER Work Phone: [facility] 02-26-2021 15:03-0500 Body height 175.3 cm Nimco Doan MD Work Phone: [facility] 02-26-2021 15:03-0500 Body mass index (BMI) [Ratio] 21.59 kg/m2 Nimco Doan MD Work Phone: [facility] [employer] 02-26-2021 15:03-0500 Body temperature 97.9 [degF] Nimco Doan MD Work Phone: [facility] 02-26-2021 15:03-0500 Body weight 66.32 kg Nimco Doan MD Work Phone: [facility] 02-26-2021 15:03-0500 Diastolic blood pressure 60 mm[Hg] Nimco Doan MD Work Phone: [facility] 02-26-2021 15:03-0500 Heart rate 60 /min Nimco Doan MD Work Phone: [facility] 02-26-2021 15:03-0500 Respiratory rate 18 /min Nimco Doan MD Work Phone: [facility] 02-26-2021 15:03-0500 SaO2% (BldA) [Mass fraction] 99 % Nimco Doan MD Work Phone: [facility] 02-26-2021 15:03-0500 Systolic blood pressure 110 mm[Hg] Nimco Doan MD Work Phone: [facility] Encounters Encounter Date Encounter Type Care Provider Facility Start: 11-02-2024 Encounter for other preprocedural examination Dread Hoover [facility] Start: 10-18-2024 ambulatory Juliano Harris Facilit y:[facility] Start: 12-03-2023 End: 12-03-2023 Patient encounter status Tere Gutierrez MD Work Phone: [facility] Work Phone: Start: 12-03-2023 End: 12-03-2023 Periodic preventive med est patient 18-39 yrs Tere Gutierrez MD Work Phone: [facility] Comment on above: Encounter for gyneco logical examination (general) (routine) without abnormal findings (Primary Dx); Screening for cervical cancer Start: 12-03-2023 End: 12-03-2023 ambulatory TERE GUTIERREZ [facility] Start: 12-03-2023 Encounter for gynecological examination (general) (routine) without abnormal findings TERE GUTIERREZ [facility] Start: 06-26-2023 End: 06-26-2023 Telephone encounter Analia [facility] [place] Comment on above: check problems list Start: 06-05-2023 Telephone encounter Rekha Mora [facility] Start: 05-12-2023 End: 05-12-2023 ambulatory ROLY MCKEON [facility] Start: 05-12-2023 End: 05-12-2023 Office outpatient visit 15 minutes Roly Mckeon MD Work Phone: [facility] Comment on above: Chronic migraine wit hout aura, with intractable migraine, so stated, with status migrainosus (Primary Dx) Start: 05-12-2023 End: 05-12-2023 Patient encounter procedure Roly Mckeon MD Work Phone: [facility] Start: 03-26-2023 Telephone encounter Analia Howard MA [facility] Comment on above: [facility] Start: 03-12-2023 Telephone encounter Analia Howard MA [facility] Comment on above: TJ [employer] Start: 03-11-2023 ambulatory WILBER WOODWARD [facility] Start: 03-10-2023 ambulatory WILBER D CRISSY [facility] Start: 11-26-2022 End: 11-27-2022 ambulatory WILBER D FATE [facility] Start: 11-26-2022 Encounter for genera l adult medical examination without abnormal findings WILBER WOODWARD [facility] Start: 11-26-2022 End: 11-26-2022 Patient encounter procedure Wilber Woodward MD Work Phone: [facility] Start: 11-26-2022 End: 11-26-2022 Patient encounter status Wilber Woodward MD Work Phone: [facility] Work Phone: Start: 11-26-2022 End: 11-26-2022 Periodic preventive med est patient 18-39 yrs Wilber Woodward MD Work Phone: [facility] Comment on above: Adult general medica l examination (Primary Dx); Chronic migraine without aura, with intractable migraine, so stated, with status migrainosus; Anxiety Start: 11-05-2022 Telephone encounter Felipa Curran MA [facility] Comment on above: Migraine medications tried/failed quilpta denial Start: 05-22-2022 End: 05-22-2022 ambulatory WILBER D FATE [facility] Start: 05-22-2022 End: 05-22-2022 Office outpatient visit 15 minutes Roly Mckeon MD Work Phone: [facility] Comment on above: Chronic migraine wit hout aura, with intractable migraine, so stated, with status migrainosus (Primary Dx) Start: 05-22-2022 End: 05-22-2022 Patient encounter procedure Roly Mckeon MD Work Phone: [facility] Start: 03-05-2022 End: 03-05-2022 Office outpatient visit 15 minutes Beverly Wesley APRN-SWEET DOUGH MIXER Work Phone: [facility] Comment on above: Screening for malign ant neoplasm of cervix (Primary Dx); H/O LEEP Start: 11-20-2021 Telephone encounter Roberta Christianson LPN [facility] Start: 11-05-2021 Telephone encounter Disha Marin [facility] Start: 09-04-2021 End: 09-04-2021 Patient encounter procedure Claudia Oviedo SOLID WASTE TECHNICIAN-CNM Work Phone: [facility] Comment on above: Encounter for IUD in sertion (Primary Dx) Start: 08-21-2021 End: 08-21-2021 Office outpatient new 30 minutes Beverly Wesley APRN-SWEET DOUGH MIXER Work Phone: [facility] Comment on above: Encounter for female control (Primary Dx); High risk sexual behavior, unspecified type; Routine screening for STI (sexually transmitted infection) Start: 02-26-2021 End: 02-26-2021 Office outpatient visit 25 minutes Nimco Doan MD Work Phone: [facility] Comment on above: Chronic migraine wit hout aura with status migrainosus, not intractable (Primary Dx); Abnormal finding on MRI of brain Start: 01-23-2021 End: 01-23-2021 Subsequent hospital visit by physician Mri[facility] Comment on above: Abnormal finding on MRI of brain Start: 12-01-2017 End: 12-02-2017 Patient encounter procedure ORESTES IRENE [facility] Start: 04-13-2017 End: 04-14-2017 Patient encounter procedure ORQUIDEA Sequeira LISA [facility] Start: 04-13-2017 End: 04-13-2017 Patient encounter procedure ORQUIDEA GONZALEZ [facility] Procedures Date Procedure Procedure Detail Performing Clinician Start: 11-26-2022 Adult depression screening assessment Wilber Woodward MD Work Phone: Start: 03-05-2022 Microscopic observat ion [Identifier] in Cervix by Cyto stain Tere Gutierrez MD Work Phone: Start: 09-04-2021 Insertion intrauteri ne device iud Claudia Abigail Brittanymiracle SOLID WASTE TECHNICIAN-CNM Work Phone: Start: 08-09-2021 Microscopic observat ion [Identifier] in Cervix by Cyto stain Beverly Wesley SOLID WASTE TECHNICIAN-SWEET DOUGH MIXER Work Phone: Start: 01-23-2021 Mri brain brain stem w/o w/contrast material Nimco Doan MD Work Phone: Start: 04-09-2020 H/O: surgery History of loo p electrical excision procedure (LEEP) Plan of Treatment Date Care Activity Detail Author Start: 2046 Zoster Vaccines (1 o f 2) Zoster Vaccines (1 of 2) [facility] Start: 03-05-2025 Screening for malign ant neoplasm of cervix Pap Smear [facility] Start: 08-09-2024 Screening for malign ant neoplasm of cervix Cervical Cancer Screening: Pap Smear [facility] Start: 11-27-2023 Adolescent depressio n screening assessment Depression Screening [facility] Start: 11-21-2023 Social Influencers o f Health Screening Social Influencers of Health Screening [facility] Start: 11-01-2023 COVID-19 Vaccine () COVID-19 Vaccine () [facility] Start: 11-01-2023 Influenza vaccination T [facility] Start: 09-20-2023 DTaP,Tdap,and Td Vaccines (7 - Td or Tdap) DTaP,Tdap,and Td Vaccines (7 - Td or Tdap) [facility] Start: 09-20-2023 DTaP/Tdap/Td Vaccine s (7 - Td or Tdap) DTaP/Tdap/Td Vaccines (7 - Td or Tdap) [facility] Start: 05-12-2023 End: 05-12-2023 Patient encounter procedure 05/12/2023 2:40 PM EDT Office Visit [facility] [address] [phone] Roly Mckeon MD [address] [place] [address] [id number] [facility] Start: 12-17-2022 End: 12-17-2022 Telemedicine consultation with patient 12/17/2022 8:00 AM EDT Telemedicine [address] [phone] Wilber Woodward MD [address] [place] [address] [facility] Start: 11-26-2022 End: 11-26-2022 Patient encounter procedure 11/26/2022 7:45 AM EDT Office Visit [address] [phone] Wilber Woodward MD [address] [place] [address] [facility] Start: 10-31-2022 Influenza vaccination Influenza Vacc ine (#1) [facility] Start: 10-14-2022 Social Influencers o f Health Screening Social Influencers of Health Screening [facility] Start: 08-09-2022 Screening for malign ant neoplasm of cervix Pap Smear [facility] Start: 02-08-2022 Screening for malign ant neoplasm of cervix Pap Smear [facility] Start: 10-31-2021 Influenza vaccination L [facility] Start: 09-04-2021 End: 09-04-2021 Patient encounter procedure 09/04/2021 Office Visit Obstetrics and Gynecology Beverly Wesley, SOLID WASTE TECHNICIAN-SWEET DOUGH MIXER [address] [place] [address] [facility] Start: 02-26-2021 End: 02-26-2021 Patient encounter procedure 02/26/2021 Office Visit Neurology Nimco Doan MD [address] [place] [address] [facility] Start: 11-20-2020 COVID-19 Vaccine (2 - Booster for Damian series) COVID-19 Vaccine (2 - Booster for Damian series) [facility] Start: 11-15-2020 Adolescent depressio n screening assessment Depression Screening [facility] Start: 11-15-2020 Hepatitis C screening Hepatitis C [facility] Start: 11-15-2020 HIV screening HIV Screening [facility] Start: 11-15-2020 Social Influencers o f Health Screening Social Influencers of Health Screening [facility] Start: 10-31-2020 Influenza vaccination Influenza Vacc ine (#1) [facility] Start: 2020 COVID-19 Vaccine (2 - Damian risk series) COVID-19 Vaccine (2 - Damian risk series) [facility] Start: 2017 Screening for malign ant neoplasm of cervix Pap Smear [facility] Start: 2014 Annual PHQ-2/9 Screening Annual PHQ-2/9 Screening [facility] Start: 2014 Diabetes mellitus screening Diabetes Screening [facility] Start: 1996 Hepatitis C screening Hepatitis C Sc reening [facility] Start: 1996 HIV screening HIV Screening [facility] Start: 1996 Screening for malign ant neoplasm of colon Routine Colonoscopy [facility] Chlamydia sp rRNA [Presence] in Cervix by Probe Chlamydia Trachomatis, RNA Lab Routine High risk sexual behavior, unspecified type Routine screening for STI (sexually transmitted infection) Ordered: 08/21/2021 [facility] Comment on above: Ordered: 08/21/2021 Cytology report of Cervical or vaginal smear or scraping Cyto stain.thin prep Pap Smear Pathology and Cytology Routine Screening for malignant neoplasm of cervix H/O LEEP Ordered: 03/05/2022 [facility] Work Phone: Comment on above: Ordered: 03/05/2022 Cytology report of Cervical or vaginal smear or scraping Cyto stain.thin prep Cytology, Gynecologic (Pap Test) Pathology and Cytology Routine Encounter for gynecological examination (general) (routine) without abnormal findings 12/03/2023 1:41 PM EDT [facility] Work Phone: NEISSERIA GONORRHEA/CHLAMYDIA TRACHOMATIS RNA NEISSERIA GONORRHEA/CHLAMYDIA TRACHOMATIS RNA Lab Routine High risk sexual behavior, unspecified type Routine screening for STI (sexually transmitted infection) Ordered: 08/21/2021 [facility] Work Phone: Comment on above: Ordered: 08/21/2021 Neisseria gonorrhoea e DNA [Presence] in Genital specimen by LEVON with probe detection Neisseria Gonhorrhoeae, RNA Lab Routine High risk sexual behavior, unspecified type Routine screening for STI (sexually transmitted infection) Ordered: 08/21/2021 [facility] Comment on above: Ordered: 08/21/2021 Trichomonas vaginali s rRNA [Presence] in Unspecified specimen by LEVON with probe detection Aptima Trichomonas Vaginalis Screen Lab Routine High risk sexual behavior, unspecified type Routine screening for STI (sexually transmitted infection) Ordered: 08/21/2021 [facility] Comment on above: Ordered: 08/21/2021 Immunizations Immunization Date Immunization Notes Care Provider Alona mark 09-25-2020 Damian SARS-COV-2 Vaccination [facility] 09-17-2020 Moderna SARS-COV-2 Vaccination Beverly DE OLIVEIRA Work Phone: [facility] 08-23-2014 meningococcal polysaccharide (groups A, C, Y and W-135) diphtheria toxoid conjugate vaccine (MCV4P) Beverly Swearingin SOLID WASTE TECHNICIAN-SWEET DOUGH MIXER Work Phone: [facility] 09-19-2013 tetanus toxoid, redu pallavi diphtheria toxoid, and acellular pertussis vaccine, adsorbed Beverly Swearingin SOLID WASTE TECHNICIAN-SWEET DOUGH MIXER Work Phone: [facility] 03-07-2010 human papilloma viru s vaccine, quadrivalent Beverly Swearingin SOLID WASTE TECHNICIAN-SWEET DOUGH MIXER Work Phone: [facility] 10-29-2009 human papilloma viru s vaccine, quadrivalent Beverly Swearingin SOLID WASTE TECHNICIAN-SWEET DOUGH MIXER Work Phone: [facility] 08-28-2009 human papilloma viru s vaccine, quadrivalent Beverly Swearingin SOLID WASTE TECHNICIAN-SWEET DOUGH MIXER Work Phone: [facility] 08-28-2009 meningococcal polysaccharide (groups A, C, Y and W-135) diphtheria toxoid conjugate vaccine (MCV4P) Beverly Swearingin SOLID WASTE TECHNICIAN-SWEET DOUGH MIXER Work Phone: [facility] 12-21-2008 influenza, seasonal, injectable Beverly Swearingin SOLID WASTE TECHNICIAN-SWEET DOUGH MIXER Work Phone: [facility] 12-21-2008 novel influenza-H1N1 -09, preservative-free, injectable Beverly Swearingin SOLID WASTE TECHNICIAN-SWEET DOUGH MIXER Work Phone: [facility] 12-21-2008 influenza virus vacc ine, unspecified formulation [facility] 08-31-2006 tetanus toxoid, redu pallavi diphtheria toxoid, and acellular pertussis vaccine, adsorbed Beverly Swearingin SOLID WASTE TECHNICIAN-SWEET DOUGH MIXER Work Phone: [facility] 10-26-2000 diphtheria, tetanus toxoids and acellular pertussis vaccine Beverly Swearingin SOLID WASTE TECHNICIAN-SWEET DOUGH MIXER Work Phone: [facility] 10-26-2000 measles, mumps and rubella virus vaccine Beverly Swearingin SOLID WASTE TECHNICIAN-SWEET DOUGH MIXER Work Phone: [facility] 10-26-2000 poliovirus vaccine, inactivated Beverly Swearingin SOLID WASTE TECHNICIAN-SWEET DOUGH MIXER Work Phone: [facility] 04-11-1998 diphtheria, tetanus toxoids and acellular pertussis vaccine Beverly Swearingin SOLID WASTE TECHNICIAN-SWEET DOUGH MIXER Work Phone: [facility] 04-11-1998 haemophilus influenz ae type b vaccine, PRP-T conjugate Beverly Swearingin SOLID WASTE TECHNICIAN-SWEET DOUGH MIXER Work Phone: [facility] 04-11-1998 measles, mumps and rubella virus vaccine Beverly Swearingin SOLID WASTE TECHNICIAN-SWEET DOUGH MIXER Work Phone: [facility] 10-27-1997 varicella virus vaccine Rainer onriega Swearingin SOLID WASTE TECHNICIAN-SWEET DOUGH MIXER Work Phone: [facility] 07-06-1997 hepatitis B vaccine, pediatric or pediatric/adolescent dosage Beverly Swearingin SOLID WASTE TECHNICIAN-SWEET DOUGH MIXER Work Phone: [facility] 04-19-1997 poliovirus vaccine, inactivated Beverly Swearingin SOLID WASTE TECHNICIAN-SWEET DOUGH MIXER Work Phone: [facility] 04-17-1997 diphtheria, tetanus toxoids and acellular pertussis vaccine Beverly Swearingin SOLID WASTE TECHNICIAN-SWEET DOUGH MIXER Work Phone: [facility] 04-17-1997 haemophilus influenz ae type b vaccine, PRP-T conjugate Beverly Swearingin SOLID WASTE TECHNICIAN-SWEET DOUGH MIXER Work Phone: [facility] 02-13-1997 diphtheria, tetanus toxoids and acellular pertussis vaccine Beverly Swearingin SOLID WASTE TECHNICIAN-SWEET DOUGH MIXER Work Phone: [facility] 02-13-1997 haemophilus influenz ae type b vaccine, PRP-T conjugate Beverly Swearingin SOLID WASTE TECHNICIAN-SWEET DOUGH MIXER Work Phone: [facility] 02-11-1997 poliovirus vaccine, inactivated Beverly Swearingin SOLID WASTE TECHNICIAN-SWEET DOUGH MIXER Work Phone: [facility] 1996 poliovirus vaccine, inactivated Beverly Swearingin SOLID WASTE TECHNICIAN-SWEET DOUGH MIXER Work Phone: [facility] 1996 diphtheria, tetanus toxoids and acellular pertussis vaccine Beverly Swearingin SOLID WASTE TECHNICIAN-SWEET DOUGH MIXER Work Phone: [facility] 1996 haemophilus influenz ae type b vaccine, PRP-T conjugate Beverly Swearingin SOLID WASTE TECHNICIAN-SWEET DOUGH MIXER Work Phone: [facility] 1996 hepatitis B vaccine, pediatric or pediatric/adolescent dosage Beverly Swearingin SOLID WASTE TECHNICIAN-SWEET DOUGH MIXER Work Phone: [facility] 1996 hepatitis B vaccine, pediatric or pediatric/adolescent dosage Beverly Swearingin SOLID WASTE TECHNICIAN-SWEET DOUGH MIXER Work Phone: [facility] Payers Date Payer Category Payer Self-pay 2024 Private Health Insurance [id number] 2023 Unknown [employer] BCBS [facility] [place] [employer] [place] [id number] 2023-Present [phone] [address] [place] [address] [id number] 2022 [place] Blue [facility] BLUE [facility] [place] [facility] [employer] [place] [id number] 2022-Present [address] [place] [address] [id number] 2022 [employer] [place] [employer] [facility] [id number] 2021 Private Health Insurance [id number] 2020 Private Health Insurance [facility] [id number] 2020-Present [address] [address] [place] [address] [id number] 2020 Private Health Insurance [id number] 1996 Unknown [id number] 1996 Unknown [id number] 1996 Unknown [id number] 1996 Unknown [id number] 1996 Unknown [id number] 1996 Unknown [id number] 1996 Unknown [id number] 1996 Unknown [id number] Unknown [id number] Unknown [id number] Unknown [id number] Unknown [id number] Social History Date Type Detail Facility Start: 11-23-2020 End: 10-16-2021 Tobacco smoking status OHIS Never smoker [facility] Start: 11-23-2020 End: 10-16-2021 Tobacco use and exposure Never used [facility] Start: 01-23-2021 End: 12-03-2023 Alcohol intake Current drinker of alcohol (finding) [facility] Start: 11-23-2020 Alcohol Comment Occasionally [facility] Start: 1996 Sex Assigned At Not on file [facility] Start: 10-05-2021 End: 05-21-2022 Exposure to SARS-CoV-2 (event) Not sure [facility] Start: 08-21-2021 History SDOH Alcohol Frequency 2 [facility] Start: 08-21-2021 History SDOH Alcohol Std Drinks 1 [facility] Start: 08-21-2021 History SDOH Social Connections Get Together 4 [facility] Start: 08-21-2021 History SDOH Social Connections Living 7 [facility] Start: 08-21-2021 History SDOH Physical Activity DPW 6 [facility] Start: 08-21-2021 Education 18 [facility] Start: 10-16-2021 History SDOH Alcohol Comment rare [facility] Start: 05-22-2022 End: 11-30-2023 Alcohol intake [facility] Start: 10-14-2021 End: 11-30-2023 Housing Instability [facility] Are you worried that in the next 2 months you may not have stable housing? No [facility] SDOH Question Code f or [facility] Utilities domain question. No [facility] [employer] Do you belong to any clubs or organizations such as methodist groups, unions, fraternal or athletic groups, or school groups? Yes [facility] [employer] Are you now , , , , never or living with a partner? Living with partner [facility] How often to you hav e a drink containing alcohol? 2-4 times a month [facility] [employer] How many standard dr inks containing alcohol do you have on a typical day? 3 or 4 [facility] [employer] How often do you hav e 6 or more drinks on 1 occasion? Less than monthly [facility] [employer] How hard is it for y ou to pay for the very basics like food, housing, medical care, and heating Not very hard [facility] [employer] Do you feel stress - tense, restless, nervous, or anxious, or unable to sleep at night because your mind is troubled all the time - these days [OSQ] Only a little [employer] [facility] [employer] (I/We) worried ezequiel er (my/our) food would run out before (I/we) got money to buy more. 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 She has no new concerns. She has a history of cervical dysplasia and had a LEEP in 2019. Due for a Pap. She has a Kyleena IUD that was inserted August 2021. Past Medical History: Diagnosis Date Abnormal Pap smear of cervix 2017 Migraine Past Surgical History: Procedure Laterality Date ANKLE SURGERY Right CERVICAL BIOPSY W/ LOOP ELECTRODE EXCISION 2019 [place] LUMBAR PUNCTURE 12/13/2019 [place] LUMBAR PUNCTURE HISTORICAL INP DEP KNEE SURGERY Left ACL Social History Tobacco Use Smoking status: Never Smokeless tobacco: Never Vaping Use Vaping Use: Never used Substance Use Topics Alcohol use: Yes Alcohol/week: 1.0 standard drink of alcohol Types: 1 Standard drinks or equivalent per week Comment: Occasional Use Drug use: Never Social History Tobacco Use Smoking Status Never Smokeless Tobacco Never The following portions of the chart were reviewed this encounter and updated as appropriate: Tobacco Allergies Meds Problems Med Hx Surg Hx Fam Hx Review of Systems Review of Systems Gastrointestinal: Negative for abdominal pain. Genitourinary: Negative for dyspareunia, menstrual problem, pelvic pain and vaginal discharge. BP 103/66 Wt 59.6 kg (131 lb 6.4 oz) Physical Exam Vitals and nursing note reviewed. Exam conducted with a chemistry technical officer present. Constitutional: Appearance: Normal appearance. HENT: Head: Normocephalic. Pulmonary: Effort: Pulmonary effort is normal. Chest: Breasts: Right: Normal. Left: Normal. Comments: Fibrocystic breast changes Abdominal: General: Abdomen is flat. Palpations: Abdomen is soft. Genitourinary: General: Normal vulva. Exam position: Lithotomy position. Vagina: Normal. Cervix: Normal. Uterus: Normal. Adnexa: Right adnexa normal and left adnexa normal. Comments: IUD strings were not visible Lymphadenopathy: Upper Body: Right upper body: No axillary adenopathy. Left upper body: No axillary adenopathy. Neurological: Mental Status: She is alert. Psychiatric: Attention and Perception: Attention normal. Mood and Affect: Mood normal. Speech: Speech normal. Behavior: Behavior normal. Assessment Preventive care--Pap, pelvic, breast exam History of cervical dysplasia IUD Plan Pap to lab RTO in 1 year No orders of the defined types were placed in this encounter. documented in this encounter [facility] 06-26-2023 History of Present illness Narrative Patient stated that her insurance had called and said they Kidney disease was on her problems list, I told her on my end its not listed and if she had any more issues or needed me to send anything to them to let me know. documented in this encounter [facility] 06-05-2023 History of Present illness Narrative Pt called asking about Qulipta PA; informed her MA started the process but hasn't heard anything; reassured her MA will reach out to her when she gets updates documented in this encounter [facility] 05-12-2023 History of Present illness Narrative Subjective Patient ID: Shant Escobar is a 27 y.o. female. Follow-up chronic migraines. On Qulipta as preventive. One or two NORIEGA a month. Takes Nurtec once a month. Discussed maintaining good hydration. Had minor concussion 2 days ago playing soccer. Migraine The following portions of the patient's chart were reviewed in this encounter and updated as appropriate: Tobacco Allergies Meds Review of Systems Objective Neurological Exam Alert and oriented with clear speech. Small abrasion right frontal from sports injury No focal CN or motor deficits. Gait stable. @NEUROPHYSEXAM@ Assessment/Plan Chronic migraine without aura, with intractable migraine, so stated, with status migrainosus (Primary) Stable on current treatment. Follow-up 1 year. Discussed women's health issues. Roly Mckeon MD documented in this encounter [facility] 03-26-2023 History of Present illness Narrative STARTED PA FOR QUILPTA documented in this encounter [facility] 03-12-2023 History of Present illness Narrative Started PA documented in this encounter [facility] 11-26-2022 History of Present illness Narrative PATIENT'S PCP: Wilber Woodward MD LAST VISIT IN THIS DEPARTMENT: Visit date not found Shant Escobar is a 27 y.o. (: 1995) female who presents today for: Chief Complaint Patient presents with Annual Exam ASSESSMENT AND PLAN: Adult general medical examination (Primary) Comments: declined labs sees facility practice specialist PAP Chronic migraine without aura, with intractable migraine, so stated, with status migrainosus - rimegepant (Nurtec) 75 mg dispersible tablet; Dissolve 1 tablet (75 mg total) on top of the tongue 1 (one) time each day if needed for migraine (for breakthrough). Dispense: 8 tablet; Refill: 11 Anxiety - escitalopram (Lexapro) 5 mg tablet; Take 1 tablet (5 mg total) by mouth 1 (one) time each day. Dispense: 30 each; Refill: 2 FOLLOW-UP: Follow up in about 3 weeks (around 12/17/2022) for Telemed. HEALTH MAINTANENCE: Health Maintenance Due Topic Date Due COVID-19 Vaccine (2 - Damian risk series) 2020 HIV Screening Never done Hepatitis C Screening Never done Influenza Vaccine (1) 10/31/2022 SUBJECTIVE: Here for CPE The qulipta has been helping prevent migraines and only having 2 per month with need of nurtec refills. Patient has been on Sumatriptan Rizatriptan Propranolol Topamax Amitriptyline Qulipta Nurtec Vitamin Therapy Pt also reports would like to start anxiety med and FH anxiety with mother failing prozac and now on paxil. Review of Systems Constitutional: Negative for appetite change and unexpected weight change. Cardiovascular: Negative for palpitations. Psychiatric/Behavioral: Negative for sleep disturbance. OBJECTIVE: Visit Vitals BP 95/68 (BP Location: Left arm, Patient Position: Sitting) Pulse 57 Temp 36.4 C (97.5 F) Resp 14 Ht 1.727 m (68) Wt 58.1 kg (128 lb) SpO2 96% BMI 19.46 kg/m OB Status IUD Smoking Status Never BSA 1.69 m BP Readings from Last 3 Encounters: 11/26/22 95/68 05/22/22 102/56 01/31/22 94/64 Wt Readings from Last 3 Encounters: 11/26/22 58.1 kg (128 lb) 05/22/22 59.4 kg (131 lb) 01/31/22 59 kg (130 lb) Physical Exam: Physical Exam Vitals and nursing note reviewed. Constitutional: General: She is not in acute distress. Appearance: Normal appearance. She is not ill-appearing. HENT: Head: Normocephalic and atraumatic. Right Ear: Tympanic membrane, ear canal and external ear normal. Left Ear: Tympanic membrane, ear canal and external ear normal. Nose: Nose normal. Mouth/Throat: Mouth: Mucous membranes are moist. Pharynx: Oropharynx is clear. No posterior oropharyngeal erythema. Eyes: General: No scleral icterus. Extraocular Movements: Extraocular movements intact. Conjunctiva/sclera: Conjunctivae normal. Pupils: Pupils are equal, round, and reactive to light. Cardiovascular: Rate and Rhythm: Normal rate and regular rhythm. Pulmonary: Effort: Pulmonary effort is normal. Breath sounds: Normal breath sounds. Abdominal: General: Bowel sounds are normal. Palpations: Abdomen is soft. There is no mass. Tenderness: There is no abdominal tenderness. Musculoskeletal: Cervical back: Normal range of motion and neck supple. Skin: General: Skin is warm and dry. Capillary Refill: Capillary refill takes less than 2 seconds. Neurological: General: No focal deficit present. Mental Status: She is alert and oriented to person, place, and time. Psychiatric: Mood and Affect: Mood normal. Behavior: Behavior normal. The following sections were reviewed with patient Tobacco Allergies Meds Problems Med Hx Surg Hx Fam Hx MEDICATION: Outpatient Encounter Medications as of 11/26/2022 Medication Sig Dispense Refill atogepant (Qulipta) 60 mg tablet Take 60 mg by mouth 1 (one) time each day. 30 tablet 11 levonorgestreL 17.5 mcg/24 hrs (5 yrs) 19.5 mg intrauterine device IUD 19.5 mg by intrauterine route. zaaqjkvu-txjf-XN-calcium-mins 27 mg iron-400 mcg tablet Take 1 tablet by mouth 1 (one) time each day. rimegepant (Nurtec) 75 mg dispersible tablet Dissolve 1 tablet (75 mg total) on top of the tongue 1 (one) time each day if needed for migraine (for breakthrough). 8 tablet 11 [DISCONTINUED] rimegepant (Nurtec) 75 mg dispersible tablet Dissolve 1 tablet (75 mg total) on top of the tongue 1 (one) time each day if needed for migraine. 8 tablet 11 escitalopram (Lexapro) 5 mg tablet Take 1 tablet (5 mg total) by mouth 1 (one) time each day. 30 each 2 No facility-administered encounter medications on file as of 11/26/2022. ALLERGIES: Allergies Allergen Reactions Amoxicillin Anaphylaxis and Hives Doxycycline Hives Amitriptyline Oxycodone Dizziness, Hives, Loss of consciousness, Nausea And Vomiting and Other passing out Other reaction(s): Other (See Comments) passing out Topiramate Pain Other reaction(s): Pain IMMUNIZATION HISTORY: Immunization History Administered Date(s) Administered DTaP 1996, 02/13/1997, 04/17/1997, 04/11/1998, 10/26/2000 H1N1 Inj Preservative Free 12/21/2008 HPV, Quadrivalent 08/28/2009, 10/29/2009, 03/07/2010 Hep B, ped/adol, 3 dose 1996, 1996, 07/06/1997 Hib (PRP-T) 1996, 02/13/1997, 04/17/1997, 04/11/1998 IPV 1996, 02/11/1997, 04/19/1997, 10/26/2000 Influenza TIV (IM) 12/21/2008 Influenza, Unspecified 12/21/2008 IVONNE/Damian SARS-CoV-2 COVID-19, vector-nr, [id number], preservative free 09/25/2020 MMR 04/11/1998, 10/26/2000 Meningococcal MCV4P 08/28/2009, 08/23/2014 Moderna SARS-CoV-2 COVID-19, mRNA, LNP-S, preservative free 09/17/2020 Tdap 08/31/2006, 09/19/2013 Varicella 10/27/1997 SOCIAL HISTORY: Social History Tobacco Use Smoking status: Never Smokeless tobacco: Never Vaping Use Vaping Use: Never used Substance Use Topics Alcohol use: Yes Alcohol/week: 1.0 standard drink of alcohol Types: 1 Standard drinks or equivalent per week Comment: rare Drug use: Never PAST SURGICAL HISTORY: Past Surgical History: Procedure Laterality Date ANKLE RIGHT OP ([id number]) Right 2018 ANTERIOR CRUCIATE LIGAMENT REPAIR Left 2019 CERVICAL BIOPSY W/ LOOP ELECTRODE EXCISION 2019 WISDOM TOOTH EXTRACTION FAMILY HISTORY: Family History Problem Relation Name Age of Onset Migraines Mother Morena Cervical cancer Father's Sister Cervical cancer Maternal Grandmother Yashira Migraines Maternal Grandmother Yashira Breast cancer Paternal Grandmother Isabel Breast cancer Father's Sister Analia LABORATORY: No visits with results within 3 Month(s) from this visit. Latest known visit with results is: No results found for any previous visit. Wilber Woodward MD documented in this encounter [facility] 11-05-2022 History of Present illness Narrative Patient has tried/failed the following medications: Sumatriptan Rizatriptan Propranolol Topamax Amitriptyline Qulipta Nurtec Vitamin Therapy documented in this encounter [facility] 11-05-2022 History of Present illness Narrative PA for Qulipta denied Spoke with [facility] PA advocate as it states the medication and/or diagnosis is not covered. They stated that it was denied because the medication is a plan exclusion. They stated that we can file an appeal as this is a continuation of treatment. Dr. Mckeon do you want to file an appeal or try a different medication? Denial letter on your desk with medications tried/failed documented in this encounter [facility] 05-22-2022 History of Present illness Narrative Subjective Patient ID: Shant Escobar is a 26 y.o. female. Follow-up chronic intractable migraine. She had failed multiple preventive treatments. We RX Qulipta. NORIEGA reduced more than 50%. Notes mild drowsiness. PRN Nurtec works. Acute Neurological Problem The patient's pertinent negatives include no altered mental status, clumsiness, focal sensory loss, focal weakness, loss of balance, memory loss, near-syncope, slurred speech, syncope, visual change or weakness. This is a chronic problem. The current episode started more than 1 year ago. The neurological problem developed gradually. The problem has been waxing and waning since onset. There was facial focality noted. Pertinent negatives include no abdominal pain, auditory change, aura, back pain, bladder incontinence, bowel incontinence, chest pain, confusion, diaphoresis, dizziness, fatigue, fever, headaches, light-headedness, nausea, neck pain, palpitations, shortness of breath, vertigo or vomiting. Past treatments include acetaminophen, aspirin, drinking, eating, medication, sleep and walking. The treatment provided mild relief. The following portions of the patient's chart were reviewed in this encounter and updated as appropriate: Tobacco Meds Med Hx Surg Hx Fam Hx Soc Hx Review of Systems Constitutional: Negative for diaphoresis, fatigue and fever. Respiratory: Negative for shortness of breath. Cardiovascular: Negative for chest pain, palpitations and near-syncope. Gastrointestinal: Negative for abdominal pain, bowel incontinence, nausea and vomiting. Genitourinary: Negative for bladder incontinence. Musculoskeletal: Negative for back pain and neck pain. Neurological: Negative for dizziness, vertigo, focal weakness, syncope, weakness, light-headedness, headaches and loss of balance. Psychiatric/Behavioral: Negative for confusion and memory loss. Objective Neurological Exam Alert and oriented with clear speech. Heart RRR. Lungs clear. No focal CN or motor deficits. @NEUROPHYSEXAM@ Assessment/Plan Chronic migraine without aura, with intractable migraine, so stated, with status migrainosus (Primary) Improved/stable on current treatment. Continue Qulipta and PRN Nurtec. Notes mild drowsiness on Qulipta but does not want to change due to the significant improvement in NORIEGA frequency. Follow-up 1 year or sooner if needed. documented in this encounter [facility] 03-05-2022 History of Present illness Narrative F/U Pap Collection Shant Escobar is a 26 y.o. with No LMP recorded. Patient has had an implant. who presents for repeat pap d/t h/o LEEP CIN3. 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 Has some spotting and cramping during menses with IUD. Review of Systems Review of Systems Constitutional: Negative for fever. Genitourinary: Negative for dyspareunia, menstrual problem, pelvic pain and vaginal discharge. All other systems reviewed and are negative. Objective Visit Vitals BP 100/62 (BP Location: Right arm, Patient Position: Sitting) Physical Exam Constitutional: Appearance: Normal appearance. She is not ill-appearing or diaphoretic. HENT: Head: Normocephalic. Nose: Nose normal. Pulmonary: Effort: Pulmonary effort is normal. Abdominal: Palpations: Abdomen is soft. Genitourinary: General: Normal vulva. Vagina: Normal. No vaginal discharge or bleeding. Cervix: No discharge, lesion or cervical bleeding. Comments: IUD strings visualized Skin: General: Skin is warm and dry. Neurological: Mental Status: She is alert and oriented to person, place, and time. Psychiatric: Mood and Affect: Mood normal. Behavior: Behavior normal. Enrollment Nurse offered to be present during exam. Pt declined. Assessment/Plan Diagnoses and all orders for this visit: Screening for malignant neoplasm of cervix - Pap Smear H/O LEEP - Pap Smear documented in this encounter [facility] 11-20-2021 History of Present illness Narrative Shant left msg on nurse line. She would like to know the status of her PA, states she called last week regarding this as well. Please contact Shant. documented in this encounter [facility] 11-07-2021 History of Present illness Narrative PA started Pt called askng if we have gotten any info on her PA for nurtec documented in this encounter [facility] 09-04-2021 History of Present illness Narrative Associated Order(s): IUD Insertion Post-Procedure Diagnose(s): Encounter for IUD insertion Patient ID: Shant Escobar is a 25 y.o. female. IUD Insertion Date/Time: 09/04/2021 8:31 AM Performed by: SAMARA Ely Authorized by: SAMARA Ely Consent: Consent obtained: Written Consent given by: Patient Procedure risks and benefits discussed: yes Patient questions answered: yes Patient agrees, verbalizes understanding, and wants to proceed: yes Educational handouts given: yes Instructions and paperwork completed: yes Procedure: Pelvic exam performed: yes Negative GC/chlamydia test: yes Cervix cleaned and prepped: yes Speculum placed in vagina: yes Tenaculum applied to cervix: yes Uterus sounded: yes Uterus sound depth (cm): 6 IUD inserted with no complications: yes IUD type: Kyleena. Strings trimmed: yes Post-procedure: Patient tolerated procedure well: yes Patient will follow up after next period: yes documented in this encounter [facility] 08-21-2021 History of Present illness Narrative Subjective 25 y.o. No obstetric history on file. female presents for contraceptive consult. She has used OCP method in the past. Various contraceptive methods discussed, including IUDs, implant, depo, barrier--typical use effectiveness for prevention also reviewed for each. Risks/adverse effects discussed. CHC not an option with patient's h/o migraines w/ aura. Abstinence was also discussed. Condoms as a way to help decrease transmission of STD's was also discussed. Obstetric History OB History No obstetric history on file. Gynecologic History Patient's last menstrual period was 07/31/2021 (approximate). Menarche at: 14yo Menses: regular on POP, hx migraines w/ aura Sexual practices: sexually active with male partner The patient denies history of sexually transmitted disease. No results found for: EXTCHLAMYDIA No results found for: EXTGONSCRN Review of Systems Review of Systems Constitutional: Negative for activity change and fever. Gastrointestinal: Negative for abdominal pain. Genitourinary: Negative for dyspareunia, menstrual problem, pelvic pain and vaginal discharge. Neurological: Positive for headaches. All other systems reviewed and are negative. Objective Visit Vitals BP 106/60 (BP Location: Left arm, Patient Position: Sitting) Temp 98.3 F (36.8 C) (Temporal) Ht 1.727 m (5' 8) Wt 135 lb (61.2 kg) LMP 07/31/2021 (Approximate) BMI 20.53 kg/m OB Status Having periods Smoking Status Never Smoker BSA 1.73 m Body mass index is 20.53 kg/m . Physical Exam Physical Exam Constitutional: Appearance: Normal appearance. She is not ill-appearing or diaphoretic. Genitourinary: Vulva normal. Right Labia: No rash, tenderness, lesions or skin changes. Left Labia: No tenderness, lesions, skin changes or rash. No vaginal discharge, erythema, tenderness or bleeding. Right Adnexa: not tender and no mass present. Left Adnexa: not tender and no mass present. No cervical motion tenderness, discharge, friability or lesion. Uterus is not fixed or tender. Pelvic exam was performed with patient in the lithotomy position. HENT: Head: Normocephalic. Eyes: Conjunctiva/sclera: Conjunctivae normal. Pulmonary: Effort: Pulmonary effort is normal. Abdominal: Palpations: Abdomen is soft. Tenderness: There is no guarding. Musculoskeletal: General: Normal range of motion. Cervical back: Normal range of motion. Neurological: Mental Status: She is alert and oriented to person, place, and time. Skin: General: Skin is warm and dry. Psychiatric: Mood and Affect: Mood normal. Vitals reviewed. Enrollment Nurse offered to be present during exam. Pt declined. Assessment/Plan Diagnoses and all orders for this visit: Encounter for female control - miSOPROStoL (Cytotec) 200 mcg tablet; Take 1 tablet (200 mcg total) by mouth 1 (one) time if needed (IUD insertion) for up to 1 dose. Take 8-12 hrs prior to IUD insertion High risk sexual behavior, unspecified type - NEISSERIA GONORRHEA/CHLAMYDIA TRACHOMATIS RNA - Aptima Trichomonas Vaginalis Screen Routine screening for STI (sexually transmitted infection) - NEISSERIA GONORRHEA/CHLAMYDIA TRACHOMATIS RNA - Aptima Trichomonas Vaginalis Screen -Reviewed contraceptive options as above -Pt elects Kyleena IUD. Rx for cytotec sent to preferred pharmacy and pt instructed to take medication the night before her IUD placement appt. Also instructed to take 600mg Ibuprofen 3-4 hrs prior to procedure. Understanding verbalized by pt . -Safe sex practices reviewed Follow up IUD placement and annuals documented in this encounter [facility] 02-26-2021 History of Present illness Narrative Subjective Patient ID: Shant Escobar is a 25 y.o. female. Chief Complaint Patient presents with Migraine Pt is here for a f/u on her migraines. HPI Shant Escobar is here for a follow up visit. NORIEGA is much improved by 75% reduction. On propranolol 120mg daily. She reported no side effects. On Maxalt for abortive therapy. Used 2 Maxalt pills per month. Repeated MRI IMPRESSION: 1. Stable exam. No acute intracranial findings. 2. Asymmetric enlarged perivascular spaces throughout the left cerebral hemisphere, unchanged from prior. The following portions of the chart were reviewed this encounter and updated as appropriate: Review of Systems Constitutional: Negative for diaphoresis, fatigue and fever. Respiratory: Negative for shortness of breath. Cardiovascular: Negative for chest pain and palpitations. Gastrointestinal: Negative for abdominal pain, nausea and vomiting. Musculoskeletal: Negative for back pain and neck pain. Neurological: Positive for dizziness and headaches. Negative for syncope, weakness and light-headedness. Psychiatric/Behavioral: Negative for confusion. Objective Physical Exam Vitals: 02/26/21 1503 BP: 110/60 Pulse: 60 Resp: 18 Temp: 36.6 C (97.9 F) SpO2: 99% Neurological Exam Neurological: Mental Status: Alert and oriented. Speech is normal, and clear. There is no evidence of dysarthria. Cranial Nerves: II: Visual field is WNL. III, IV, : EOMI, PERRL. No nystagmus was noted. VII: face is symmetric with no evidence of masking facial expression. VIII: hearing intact. XI: SCM 5/5, Tremor: none Motor: 5/5 bilaterally Cerebellar function: within normal limits. Gait examination: Casual walking is normal. Assessment/Plan Diagnoses and all orders for this visit: Chronic migraine without aura with status migrainosus, not intractable - rizatriptan RETAIL SERVICE TECHNICIAN (Maxalt-RETAIL SERVICE TECHNICIAN) 10 mg disintegrating tablet; Take 1 tablet (10 mg total) by mouth 1 (one) time if needed for migraine (Tkane one tablet at the onset of migraine headache. May repeat one in 2 hours. Maximal dose: 2/day/week.). May repeat in 2 hours if unresolved. Do not exceed 30 mg in 24 hours. - propranolol LA (Inderal LA) 120 mg 24 hr capsule; Take 1 capsule (120 mg total) by mouth 1 (one) time each day. Abnormal finding on MRI of brain Stable changes on her recent brain MRI. I discussed the details of the above plan with patient who expressed understanding, and agreed with. documented in this encounter [facility] Evaluation note Diagnosis Abnormal finding on MRI of brain documented in this encounter [facility] note* Diagnosis Chronic migraine without aura with status migrainosus, not intractable- Primary Abnormal finding on MRI of brain documented in this encounter [facility] note* Diagnosis Encounter for female control- Primary High risk sexual behavior, unspecified type Routine screening for STI (sexually transmitted infection) Screening examination for venereal disease documented in this encounter [facility] note* Diagnosis Encounter for IUD insertion- Primary Insertion of intrauterine contraceptive device documented in this encounter [facility] note* Diagnosis Screening for malignant neoplasm of cervix- Primary Screening for malignant neoplasm of the cervix H/O LEEP documented in this encounter [facility] note* Diagnosis Chronic migraine without aura, with intractable migraine, so stated, with status migrainosus- Primary documented in this encounter [facility] note* Diagnosis Adult general medical examination- Primary Unspecified general medical examination Chronic migraine without aura, with intractable migraine, so stated, with status migrainosus Anxiety Anxiety state, unspecified documented in this encounter [facility] note* Diagnosis Chronic migraine without aura, with intractable migraine, so stated, with status migrainosus- Primary documented in this encounter [facility] note* Diagnosis Encounter for gynecological examination (general) (routine) without abnormal findings- Primary Screening for cervical cancer Screening for malignant neoplasm of the cervix documented in this encounter [facility] Summary Purpose Family History No Family History Records FoundNo Family History Records FoundNo Family History Records FoundNo Family History Records FoundNo Family History Records FoundNo Family History Records Found Advance Directives No Advanced Directives Records FoundDocuments on File Type Date Recorded 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 Advance Directives and Living Will Power of Crop Picker Documents on File Type Date Recorded 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 Advance Directives and Living Will Power of Crop Picker Reason for Referral Specialty Diagnoses / Procedures Referred By Farhad hoffman Referred To Contact Radiology Diagnoses Abnormal finding on MRI of brain Procedures MR BRAIN W WO CONTRAST Nimco Doan MD [address] [place] [phone] Referral ID Status Reason Start Date Expiration Date Visits Re quested Visits Authorized [id number] Closed 11/23/2020 11/23/2021 1 1 Specialty Diagnoses / Procedures Referred By Farhad hoffman Referred To Contact Diagnoses Chronic migraine without aura, with intractable migraine, so stated, with status migrainosus Wilber Woodward MD [address] [place] [address] Referral ID Status Reason Start Date Expiration Date V isits Requested Visits Authorized [id number] Pending Review 1 1 Additional Source Comments INFORMATION SOURCE (unrecogn ized section and content) DATE CREATED AUTHOR 02/08/2018 [employer] DATE CREATED AUTHOR AUTHOR'S ORGANIZ ATION 06/30/2020 [facility] DATE CREATED AUTHOR AUTHOR'S ORGANIZ ATION 03/15/2023 [facility] DATE CREATED AUTHOR AUTHOR'S ORGANIZ ATION 05/13/2023 [facility] DATE CREATED AUTHOR AUTHOR'S ORGANIZ ATION 12/16/2023 [facility] DATE CREATED AUTHOR AUTHOR'S ORGANIZ ATION 11/04/2024 [facility] Reason for Visit (unrecogniz ed section and content) Specialty Diagnoses / Procedures Referred By Farhad hoffman Referred To Contact Radiology Diagnoses Abnormal finding on MRI of brain Procedures MR BRAIN W WO Nimco Jennings MD [address] [employer] [place] [address] Referral ID Status Reason Start Date Expiration Date Visits Re quested Visits Authorized [id number] Closed 11/23/2020 11/23/2021 1 1 Reason Comments Migraine Pt is here for a f/u on her migraines. Reason Comments Annual Exam Contraception Pt would like to dis cuss getting Kyleena IUD placed. Pt had a pap 2 weeks ago in [place]. Reason Comments Other Reason Comments Migraine Patient reports migr aines are a lot better since starting Qulipta. She states that on Month 2 she still had a full box of Nurtec left. She reports taking about 6 pills in 3 months which is down from about 8 pill a month prior to starting Qulipta. Reason Onset Date Comments Migraine medications tried/failed 11/05/2022 Reason Comments Annual Exam Reason Onset Date Comments quilpta denial 11/05/2022 Reason Onset Date Comments PA Qulipta 03/12/2023 Reason Onset Date Comments PA QULIPTA 03/26/2023 Reason Comments Migraine Reason Onset Date Comments check problems list 06/26/2023 Reason Comments Annual Exam Care Teams (unrecognized sec tion and content) Dispatcher Clerk Relationship Specialty Start Date End Date Wilber Woodward MD [address] [place] [address] PCP - General Family Medicine 10/18/19 Dispatcher Clerk Relationship Specialty Start Date End Date Wilber Woodward MD [address] [place] [address] PCP - General Family Medicine 10/18/19 Dispatcher Clerk Relationship Specialty Start Date End Date Wilber Woodward MD [address] [place] [address] PCP - General Family Medicine 10/18/19 Dispatcher Clerk Relationship Specialty Start Date End Date Wilber Woodward MD [address] [place] [address] PCP - General Family Medicine 10/18/19 Dispatcher Clerk Relationship Specialty Start Date End Date Wilber Woodward MD [address] [place] [address] PCP - General Family Medicine 10/18/19 Dispatcher Clerk Relationship Specialty Start Date End Date Wilber Woodward MD [address] [place] [address] PCP - General Family Medicine 10/18/19 Dispatcher Clerk Relationship Specialty Start Date End Date Wilber Woodward MD [address] [place] [address] PCP - General Family Medicine 10/18/19 Dispatcher Clerk Relationship Specialty Start Date End Date Wilber Woodward MD [address] [place] [address] PCP - General Family Medicine 10/18/19 Dispatcher Clerk Relationship Specialty Start Date End Date Tere Gutierrez MD [address] [place] [phone] Chair Post [facility] 12/03/23 Ordered Prescriptions (unrec ognized section and content) Prescription Sig Dispensed Refills Start Date End Da te escitalopram (Lexapro) 5 mg tabletIndications:Anxiet y Take 1 tablet (5 mg total) by mouth 1 (one) time each day. 30 each 2 11/26/2022 02/24/2023 rimegepant (Nurtec) 75 mg dispersible tabletIndications:Chroni c migraine without aura, with intractable migraine, so stated, with status migrainosus Dissolve 1 tablet (75 mg total) on top of the tongue 1 (one) time each day if needed for migraine (for breakthrough). 8 tablet 11 11/26/2022 FOR RECORDS PERTAINING TO PATIENTS WHO ARE OR HAVE BEEN ENROLLED IN A CHEMICAL DEPENDENCY/SUBSTANCEABUSE PROGRAM, SOME INFORMATION MAY BE OMITTED. This clinical summary was aggregated from multiple sources. Caution should be exercised in using it in the provision of clinical care. This summary normalizes information from multiple sources, and as a consequence, information in this document may materially change the coding, format and clinical context of patient data. In addition, data may be omitted in some cases. CLINICAL DECISIONS SHOULD BE BASED ON THE PRIMARY CLINICAL RECORDS. [facility]. provides no warranty or guarantee of the accuracy or completeness of information in this document.
[2025-01-28] MEDS: Lidocaine 1% (20 ml mdv) 20 ML Vial INFILT (16:32)
[2025-01-28] MEDS: Lidocaine/Epi/Tetracaine 50 ML 1 APPLIC TOPICAL (16:33)
[2025-01-28 18:13] VITALS: BP 110/70; PULSE 77; RESP 16; TEMP 36.8; O2SAT 99
== END 2025-01-28 18:13 | disposition home or self-care (01) ==
PROVIDERS: Emergency Provider Emergency Medicine; PCP Family Medicine; Visit Provider Emergency Medicine
DX: S01.81XA Laceration without foreign body of other part of head, initial encounter (principal); W54.0XXA Bitten by dog, initial encounter; S02.5XXA Fracture of tooth (traumatic), initial encounter for closed fracture; S03.2XXA Dislocation of tooth, initial encounter; Z23 Encounter for immunization; S01.512A Laceration without foreign body of oral cavity, initial encounter; Y93.89 Activity, other specified; F41.9 Anxiety disorder, unspecified; Z79.899 Other long term (current) drug therapy
CPT/HCPCS: 12013; 71045; 74018; 90471; 90715; 99284